=== PATIENT | male | born 1985 | race Caucasian/White ===

== ENCOUNTER 2019-03-19 00:48 | Emergency (ER) | payer SELFPAY ==
[2019-03-19 01:28] LABS: Absolute Lymphocytes (CBC) 2.7 K/uL (0.7-4.9); Hematocrit 44.3 % (39.6-49.0); Lymphocytes % 26.7 % (15.3-44.8); MPV 8.7 fL (7.6-11.3); RBC Red Blood Cell Count 4.89 M/uL (4.33-5.43)
[2019-03-19 01:35] LABS: Protime INR 1.02
[2019-03-19 01:45] LABS: ALT/SGPT 45 U/L (12-78); AST/SGOT 20 U/L (15-37); Albumin 3.9 g/dL (3.4-5.0); Alkaline Phosphatase 92 U/L (45-117); BUN Blood Urea Nitrogen 16 mg/dL (7-18); Bicarbonate 23 mmol/L (21-32); Bilirubin Direct < 0.1 mg/dL (0-0.2); Bilirubin Total 0.3 mg/dL (0.2-1.0); Glucose Level 99 mg/dL (74-106); Magnesium 2.2 mg/dL (1.8-2.4); NT PRO-BNP 101 pg/mL (<125); Potassium 3.6 mmol/L (3.5-5.1); Protein, Total 7.3 g/dL (6.4-8.2); Sodium Level 144 mmol/L (136-145); Troponin (Emerg Dept Use Only) < 0.02 ng/mL (0.0-0.045)
[2019-03-19] MEDS ORDERED: MORPHINE 4 MG/ML SYR ONE (02:41)
[2019-03-19] MEDS ORDERED: ONDANSETRON 4 MG/2 ML VIAL ONE (02:41)
[2019-03-19 02:47] LABS: Urine Blood NEGATIVE (NEG); Urine Glucose NEGATIVE (NEG); Urine Protein NEGATIVE (NEG); Urine Specific Gravity >1.030 (1.005-1.030); Urine pH 5.5 (5.0-7.0)
[2019-03-19 02:56] LABS: Barbiturates NEGATIVE (NEGATIVE); Benzodiazepines NEGATIVE (NEGATIVE); Cocaine NEGATIVE (NEGATIVE); METHAMPHETAM NEGATIVE (NEGATIVE); Methadone NEGATIVE (NEGATIVE); Opiates NEGATIVE (NEGATIVE); Phencyclidine NEGATIVE (NEGATIVE); THC Cannibis NEGATIVE (NEGATIVE)
[2019-03-19] MEDS ORDERED: NA CHLORIDE 0.9% 1,000 ML ONE (03:49)
[2019-03-19] MEDS ORDERED: MEPERIDINE HCL 50 MG/ML ONE (03:49)
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
--- NOTE | 2019-03-19 05:23 | EDPHYS ---
Physician Documentation [facility] Name: Camden Godinez Age: 33 yrs Sex: Male : 1985 Arrival Date: 03/19/2019 Time: 00:53 Bed 5 Private MD: ED Physician Cristofer Alan HPI: 03/19 01:06 This 33 yrs old Male presents to ER via EMS with complaints of Chest Pain. pkl 01:06 The patient or guardian reports chest pain that is located primarily in the substernal pkl area. The pain does not radiate. Associated signs and symptoms: Pertinent positives: palpitations. Associated signs and symptoms: Pertinent positives: headache. The chest pain is described as dull. Historical: - Allergies: 01:00 PENICILLINS; fc - Home Meds: 01:00 None [Active]; fc - PMHx: 01:00 Hypertension; fc - PSHx: 01:00 Bilateral knees; right hand; fc - Immunization history:: Last tetanus immunization: unknown. - Social history:: Smoking status: Patient uses tobacco products, smokes one pack cigarettes per day. Patient uses alcohol, occasionally. Patient/guardian denies using street drugs. - Ebola Screening: : Patient negative for fever greater than or equal to 101.5 degrees Fahrenheit, and additional compatible Ebola Virus Disease symptoms Patient denies exposure to infectious person Patient denies travel to an Ebola-affected area in the 21 days before illness onset. ROS: 01:06 Eyes: Negative for injury, pain, redness, and discharge, ENT: Negative for injury, pkl pain, and discharge, Neck: Negative for injury, pain, and swelling. 01:06 Cardiovascular: Positive for chest pain, palpitations. 01:06 Respiratory: Negative for cough, shortness of breath. 01:06 Abdomen/GI: Negative for abdominal pain, nausea, vomiting, and diarrhea. 01:06 Back: Negative for acute changes. 01:06 : Negative for urinary symptoms. 01:06 MS/extremity: Negative for acute changes. 01:06 Skin: Negative for rash. 01:06 Neuro: Positive for headache. Exam: 01:06 Head/Face: Normocephalic, atraumatic. Eyes: Pupils equal round and reactive to light, pkl extra-ocular motions intact. Lids and lashes normal. Conjunctiva and sclera are non-icteric and not injected. Cornea within normal limits. Periorbital areas with no swelling, redness, or edema. ENT: Nares patent. No nasal discharge, no septal abnormalities noted. Tympanic membranes are normal and external auditory canals are clear. Oropharynx with no redness, swelling, or masses, exudates, or evidence of obstruction, uvula midline. Mucous membranes moist. Neck: Trachea midline, no thyromegaly or masses palpated, and no cervical lymphadenopathy. Supple, full range of motion without nuchal rigidity, or vertebral point tenderness. No Meningismus. Chest/axilla: Normal chest wall appearance and motion. Nontender with no deformity. No lesions are appreciated. 01:06 Cardiovascular: Rate: normal, Rhythm: regular. 01:06 ECG was reviewed by the Attending Physician. 01:06 Respiratory: the patient does not display signs of respiratory distress, Respirations: normal, Breath sounds: are clear throughout. 01:06 Abdomen/GI: Bowel sounds: normal, Palpation: abdomen is soft and non-tender, in all quadrants. 01:06 Back: Exam negative for acute changes. 01:06 : Exam negative for acute changes. 01:06 Musculoskeletal/extremity: Exam is negative for acute changes. 01:06 Skin: Exam negative for rash. 01:06 Neuro: Orientation: is normal, Mentation: is normal, Cranial nerves: grossly normal, Motor: is normal. Vital Signs: 00:55 BP 140 / 90; Pulse 100; Resp 24; Temp 98.5(O); Pulse Ox 94% on R/A; Weight 113.4 kg fc (R); Height 5 ft. 10 in. (177.80 cm) (R); Pain 10/10; 01:32 BP 145 / 88; Pulse 103; Resp 24; Pulse Ox 93% on R/A; lp1 02:30 BP 130 / 93; Pulse 101; Resp 17; Pulse Ox 94% on R/A; lp1 03:15 BP 108 / 88; Pulse 95; Resp 17; Pulse Ox 94% on R/A; lp1 04:30 BP 122 / 67; Pulse 81; Resp 20; Pulse Ox 96% on 2 lpm NC; lp1 05:15 BP 136 / 80; Pulse 84; Resp 20; Pulse Ox 94% on R/A; lp1 05:42 BP 134 / 86; Pulse 84; Resp 20; Pulse Ox 94% on R/A; Pain 6/10; lp1 00:55 Body Mass Index 35.87 (113.40 kg, 177.80 cm) MDM: 01:02 Patient medically screened. pkl 05:20 Data reviewed: vital signs, nurses notes, lab test result(s), EKG, radiologic studies, pkl CT scan, plain films. 03/19 01:02 Order name: Basic Metabolic Panel; Complete Time: 02:16 03/19 01:02 Order name: CBC with Diff; Complete Time: 02:16 03/19 01:02 Order name: LFT's; Complete Time: 02:16 03/19 01:02 Order name: Magnesium; Complete Time: 02:16 03/19 01:02 Order name: NT PRO-BNP; Complete Time: 02:16 03/19 01:02 Order name: PT-INR 03/19 01:02 Order name: Troponin (emerg Dept Use Only); Complete Time: 02:16 03/19 01:02 Order name: XRAY Chest (1 view) 03/19 01:02 Order name: CT Head Brain wo Cont 03/19 01:06 Order name: ETOH Level; Complete Time: 02:16 pkl 03/19 01:06 Order name: UDS; Complete Time: 03:46 pkl 03/19 02:39 Order name: Urine Dipstick--Ancillary (enter results); Complete Time: 03:46 ag4 03/19 01:02 Order name: EKG; Complete Time: 01:06 03/19 01:02 Order name: Cardiac monitoring; Complete Time: 01:29 03/19 01:02 Order name: EKG - Nurse/Tech; Complete Time: 01:29 03/19 01:02 Order name: IV Saline Lock; Complete Time: 01:29 03/19 01:02 Order name: Labs collected and sent; Complete Time: 01:29 03/19 01:02 Order name: O2 Per Protocol; Complete Time: :29 03/19 01:02 Order name: O2 Sat Monitoring; Complete Time: 01:29 Administered Medications: 03:02 Drug: Zofran 4 mg Route: IVP; Site: right hand; bb 03:44 Follow up: Response: No adverse reaction lp1 03:02 Drug: morphine 4 mg {Note: RASS 0.} Route: IVP; Site: right hand; bb 03:44 Follow up: Response: Pain is unchanged, physician notified; RASS: Restless (+1) lp1 03:50 Drug: NS 0.9% 1000 ml Route: IV; Rate: 1000 ml; Site: right hand; lp1 05:22 Follow up: IV Status: Completed infusion; IV Intake: 1000ml lp1 03:50 Drug: Demerol 50 mg Route: IVP; Site: right hand; lp1 04:27 Follow up: Response: Pain is decreased; RASS: Alert and Calm (0) lp1 Disposition: 03/19/19 05:22 Discharged to Home. Impression: Chest pain. Acute headache. - Condition is Stable. - Prescriptions for Ultram 50 mg Oral Tablet - take 1 tablet by ORAL route every 8 hours As needed; 15 tablet. - Work release form, Medication Reconciliation Form, Thank You Letter, Antibiotic Education, Prescription Opioid Use, Family Work Release form. - Follow up: Private Physician; When: 2 - 3 days; Reason: Re-evaluation by your physician. Signatures: Dispatcher [employer] EDMS Cristofer Alan MD MD pkl Chretien, Felicia RN RN fc Codi Shin RN RN bb Pena, Laura, RN RN lp1 Nery Tamayo RN RN ea Corrections: (The following items were deleted from the chart) 05:45 05:22 03/19/2019 05:22 Discharged to Home. Impression: Chest pain. Acute headache. ea Condition is Stable. Forms are Medication Reconciliation Form, Thank You Letter, Antibiotic Education, Prescription Opioid Use. Follow up: Private Physician; When: 2 - 3 days; Reason: Re-evaluation by your physician. pkl
--- NOTE | 2019-03-19 08:26 | RAD REPORT ---
EXAM DESCRIPTION: Bernarda Single View03/19/2019 1:41 am CLINICAL HISTORY: Chest pain COMPARISON: none FINDINGS: The lungs appear clear of acute infiltrate. The heart is normal size IMPRESSION: No acute abnormalities displayed
--- NOTE | 2019-03-19 09:57 | RAD REPORT ---
EXAM DESCRIPTION: CT - Head Brain Wo Cont - 03/19/2019 6:57 am CLINICAL HISTORY: HEADACHE COMPARISON: None. TECHNIQUE: CT HEAD WITHOUT IV CONTRAST on 03/19/2019 1:02 AM CDT This exam was performed according to our departmental dose-optimization program, which includes autom ated exposure control, adjustment of the mA and/or kV according to patient size and/or use of iterati ve reconstruction technique. FINDINGS: There is no acute hemorrhage, mass effect or midline shift. Spencer-white differentiation is preserved. There is no hydrocephalus. There is no significant volume loss for age. The calvarium is intact. Orbits and globes are unremarkable. The paranasal sinuses are clear. Mastoid air cells are clear. IMPRESSION: No acute intracranial findings. Electronically signed by: Иван Ji MD 03/19/2019 1:41 AM CDT Due to temporary technical issues with the PACS/Fluency reporting system, reports are being signed by the in house radiologist as a courtesy to ensure prompt reporting. The interpreting radiologist is f ully responsible for the content of the report.
--- NOTE | 2019-03-19 17:36 | EKG ---
Test Date: 2019-03-19 Test Time: 00:53:41 [place] Operator: JOVANNY MEASUREMENT RESULTS: Intervals: Rate: 104 AK: 138 QRSD: 84 QT: 346 QTc: 454 [place]: P: -12 AK: 138 QRS: 49 T: 9 INTERPRETIVE STATEMENTS: Sinus tachycardia Otherwise normal ECG No previous ECG available for comparison Electronically Signed On 03-19-19 17:34:06 CDT by Estuardo Bailey
== END 2019-03-19 05:45 | disposition home or self-care (01) ==
LOC: ER 00:48
DX: R51 Headache (principal); I10 Essential (primary) hypertension; F17.210 Nicotine dependence, cigarettes, uncomplicated; Z88.0 Allergy status to penicillin
CPT/HCPCS: 36415; 70450; 71045; 80048; 80076; 80307; 80320; 81003; 83735; 83880; 84484; 85025; 85610; 93005; 96361; 96374; 96375; 99285; J2175; J2405; J7030

== ENCOUNTER 2019-09-26 08:16 | Emergency (ER) | payer SELFPAY ==
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
--- OUTSIDE RECORDS SUMMARY | 2019-09-26 08:18 | XMS REPORT ---
:1985 [facility] Address [address] [place] [address] Dr. Brooks [address] [place] [id number] Care Team Providers Name Role Phone Unavailable Unavailable Unavailable Problems This patient has no known problems. Allergies, Adverse Reactions, Alerts This patient has no known allergies or adverse reactions. Medications This patient has no known medications.
--- OUTSIDE RECORDS SUMMARY | 2019-09-26 08:18 | XMS REPORT | Summary of Care ---
:1985 Author Organization [facility] - [facility] Address [address] [place] [address] Care Team Providers Name Role Phone Camden Alvarez MD Primary Care Provider Reason for Visit Reason Comments Anxiety Depression Hypertension Encounter Details Date Type Department Care Team Description 03/20/2019 Office Visit [facility] Family Camden Alvarez Mood disorder ( Primary Dx); Medicine - Jordana Howell MD Anxiety and depression [facility] [address] [place] [address] [phone] Allergies No Known Allergiesdocumented as of this [...] with medications: stopped medication 3 weeks ago. 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
--- OUTSIDE RECORDS SUMMARY | 2019-09-26 08:19 | XMS REPORT | Summary of Care ---
:1985 Author Organization [facility] - [facility] Address [address] [place] [address] Care Team Providers Name Role Phone Camden Alvarez MD Primary Care Provider Reason for Visit Reason Comments Anxiety Depression Hypertension Encounter Details Date Type Department Care Team Description 03/20/2019 Office Visit [facility] Family Camden Alvarez Mood disorder ( Primary Dx); Medicine - Jordana Howell MD Anxiety and depression [facility] [address] [place] [address] [phone] Allergies No Known Allergiesdocumented as of this [...] with medications: stopped medication 3 weeks ago. 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
--- OUTSIDE RECORDS SUMMARY | 2019-09-26 08:19 | XMS REPORT | Summary of Care ---
:1985 Author Organization [facility] - [facility] Address [address] [place] [address] Care Team Providers Name Role Phone Camden Alvarez MD Primary Care Provider Reason for Visit Reason Comments Anxiety Depression Hypertension Encounter Details Date Type Department Care Team Description 03/20/2019 Office Visit [facility] Family Camden Alvarez Mood disorder ( Primary Dx); Medicine - Jordana Howell MD Anxiety and depression [facility] [address] [place] [address] [phone] Allergies No Known Allergiesdocumented as of this [...] with medications: stopped medication 3 weeks ago. 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
--- OUTSIDE RECORDS SUMMARY | 2019-09-26 08:20 | XMS REPORT | Summary of Care ---
:1985 Author Organization [facility] Address [address] [place] [address] Care Team Providers Name Role Phone Camden Alvarez MD Primary Care Provider Reason for Visit Reason Comments Anxiety Depression Hypertension Encounter Details Date Type Department Care Team Description 03/20/2019 Office Visit [facility] Family Camden Alvarez Mood disorder ( Primary Dx); Medicine - Jordana Howell MD Anxiety and depression; [address] [place] [address] [address] [place] [address] [place] [address] [phone] Allergies No Known Allergiesdocumented as of this encounter (statuses as of 03/20/2019) Medications Medication Sig Dispensed Refills Start Date End Date Status SERTraline 50 mg Take 1 tablet 30 tablet 12 03/20/2019 Active tabletIndications: by mouth Mood disorder, daily. Anxiety and depression ALPRAZolam 0.5 mg Take 1 tablet 60 tablet 0 03/20/2019 Active tabletIndications: by mouth 2 Mood disorder, (two) times Anxiety and daily as depression needed (anxiety). amLODIPine 5 mg Take 1 tablet 30 tablet 12 03/20/2019 Active tabletIndications: by mouth Essential daily. hypertension amLODIPine 5 mg Take 1 tablet 30 tablet 3 12/27/2018 03/20/2019 Discontinued tabletIndications: by mouth Essential daily. hypertension escitalopram Take 1 tablet 30 tablet 12 [...] with medications: stopped medication 3 weeks ago. 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
--- OUTSIDE RECORDS SUMMARY | 2019-09-26 08:20 | XMS REPORT | Summary of Care ---
:1985 Author Organization [facility] - Health Address [address] [place] [address] Care Team Providers Name Role Phone Camden Alvarez MD Primary Care Provider Encounter Details Date Type Department Care Team Description 03/20/2019 Orders Only [facility] Doctor Unassigned, No [address] [facility] [place] [address] [address] [place] [address] Allergies No Known Allergiesdocumented as of this encounter (statuses as of 03/26/2019) Medications Medication Sig Dispensed Refills Start Date End Date Status SERTraline 50 mg Take 1 tablet by 30 tablet 12 03/20/2019 Active tabletIndications: Mood mouth daily. disorder, Anxiety and depression ALPRAZolam 0.5 mg Take 1 tablet by 60 tablet 0 03/20/2019 Active tabletIndications: Mood mouth 2 (two) disorder, Anxiety and times daily as depression needed (anxiety). amLODIPine 5 mg Take 1 tablet by 30 tablet 12 03/20/2019 Active tabletIndications: mouth daily. Essential hypertension documented as of this encounter (statuses as of 03/26/2019) Active Problems Problem Noted Date Dizziness 11/29/2017 Acute nonintractable headache, unspecified headache type 11/29/2017 History of chest pain 11/29/2017 Left hand paresthesia 11/29/2017 Tobacco use disorder 11/29/2017 documented as of this encounter (statuses as of 03/26/2019) Immunizations Name Administration Dates Next Due Td [...] of this encounter Last Filed Vital Signs Not on filedocumented in this encounter Plan of Treatment Date Type Specialty Care Team Description 04/19/2019 Office Visit Family Medicine Camden Alvarez MD [address] [place] [address] [place] [phone] Health Maintenance Due Date Last Done Comments PNEUMOCOCCAL 0-64 YEARS COMBINED SERIES (1 of 1 - 1992 PPSV23) VARICELLA VACCINES (1 of 2 - 13+ 2-dose series) 1999 DTaP,Tdap,and Td Vaccines (1 - Tdap) 10/27/2007 10/26/2007 INFLUENZA VACCINE (#1) 2019 documented as of this encounter Procedures Procedure Name Priority Date/Time Associated Diagnosis Comments [facility] STATEMENT OF PATIENT Routine 03/20/2019 12:01 AM FINANCIAL RESPONSIBILITY CDT documented in this encounter Results Not on filedocumented in this encounter
--- OUTSIDE RECORDS SUMMARY | 2019-09-26 08:20 | XMS REPORT | Summary of Care ---
:1985 Author Organization [facility] Address [address] [place] [address] Care Team Providers Name Role Phone Camden Alvarez MD Primary Care Provider Reason for Visit Reason Comments Erroneous encounter-disregard Encounter Details Date Type Department Care Team Description 03/19/2019 Refill [facility] Family Camden Alvarez Erroneous Medicine - Jordana Howell MD encounter-disregard [address] [facility] [place] [address] [place] [phone] Allergies No Known Allergiesdocumented as of this encounter (statuses as of 04/02/2019) Medications No known medicationsdocumented as of this encounter (statuses as of 04/02/2019) Active Problems Problem Noted Date Dizziness 11/29/2017 Acute nonintractable headache, unspecified headache type 11/29/2017 History of chest pain 11/29/2017 Left hand paresthesia 11/29/2017 Tobacco use disorder 11/29/2017 documented as of this encounter (statuses as of 04/02/2019) Immunizations Name Administration Dates Next Due Td [...] Office Visit Family Medicine Camden Alvarez MD [address] [place] [address] DR [place], SUDHIR [phone] Health Maintenance Due Date Last Done Comments PNEUMOCOCCAL 0-64 YEARS COMBINED SERIES (1 of 1 - 1992 PPSV23) VARICELLA VACCINES (1 of 2 - 13+ 2-dose series) 1999 DTaP,Tdap,and Td Vaccines (1 - Tdap) 10/27/2007 10/26/2007 INFLUENZA VACCINE (#1) 2019 documented as of this encounter Results Not on filedocumented in this encounter Visit Diagnoses Diagnosis Essential hypertension Unspecified essential hypertension documented in this encounter
[2019-09-26 09:21] LABS: Absolute Lymphocytes (CBC) 1.8 K/uL (0.7-4.9); Basophils % 0.6 % (0-1.3); Hematocrit 44.6 % (39.6-49.0); Lymphocytes % 14.6 % (15.3-44.8); MPV 8.8 fL (7.6-11.3); RBC Red Blood Cell Count 5.04 M/uL (4.33-5.43)
--- NOTE | 2019-09-26 09:33 | RAD REPORT ---
EXAM DESCRIPTION: [facility] Single View09/26/2019 9:08 am CLINICAL HISTORY: Chest pain COMPARISON: . 2019 FINDINGS: The lungs appear clear of acute infiltrate. The heart is normal size IMPRESSION: No acute abnormalities displayed
[2019-09-26 09:37] LABS: Potassium 4.5 mmol/L (3.5-5.1)
--- NOTE | 2019-09-26 09:52 | EDPHYS ---
Physician Documentation [facility] Name: Camden Godinez Age: 34 yrs Sex: Male : 1985 Arrival Date: 09/26/2019 Time: 08:19 Bed 13 Private MD: ED Physician Ayaz Matthews HPI: 09/25 08:59 This 34 yrs old Male presents to ER via Ambulatory with complaints of Flu kdr Symptoms. 08:59 The patient became acutely ill yesterday with cough, congestion, subjective fever and kdr body aches. Onset: The symptoms/episode began/occurred suddenly, yesterday. Severity of symptoms: At their worst the symptoms were moderate severe incapacitating today, in the emergency department the symptoms have improved mildly. The patient has not experienced similar symptoms in the past. The patient has not recently seen a physician. The patient works at the [employer] with international exposure but he has no known or suspected direct contacts at this time. Historical: - Allergies: 08:55 No Known Allergies; dm5 - Home Meds: 08:55 None [Active]; dm5 - PMHx: 08:55 Hypertension; dm5 - PSHx: 08:55 None; dm5 - Immunization history:: Flu vaccine status is unknown. - Social history:: Smoking status: unknown. ROS: 11:22 Constitutional: Negative for fever, chills, and weight loss, Eyes: Negative for injury, kdr pain, redness, and discharge, ENT: Negative for injury, pain, and discharge, Neck: Negative for injury, pain, and swelling, Cardiovascular: Negative for chest pain, palpitations, and edema, Respiratory: Negative for shortness of breath, cough, wheezing, and pleuritic chest pain, Back: Negative for injury and pain, : Negative for injury, bleeding, discharge, and swelling, MS/Extremity: Negative for injury and deformity, Skin: Negative for injury, rash, and discoloration, Neuro: Negative for headache, weakness, numbness, tingling, and seizure activity. Psych: Negative for depression, anxiety, suicide ideation, homicidal ideation, and hallucinations, Allergy/Immunology: Negative for hives, rash, and allergies, Endocrine: Negative for neck swelling, polydipsia, polyuria, polyphagia, and marked weight changes, Hematologic/Lymphatic: Negative for swollen nodes, abnormal bleeding, and unusual bruising. 11:22 Abdomen/GI: Positive for nausea and vomiting, Negative for diarrhea, constipation, abdominal cramps, abdominal distension, anorexia, black/tarry stool, rectal pain, rectal bleeding. Exam: 11:22 Constitutional: This is a well developed, well nourished patient who is awake, alert, kdr and in mild distress. Head/Face: Normocephalic, atraumatic. Eyes: Pupils equal round and reactive to light, extra-ocular motions intact. Lids and lashes normal. Conjunctiva and sclera are non-icteric and not injected. Cornea within normal limits. Periorbital areas with no swelling, redness, or edema. ENT: Nares patent. No nasal discharge, no septal abnormalities noted. Tympanic membranes are normal and external auditory canals are clear. Oropharynx with no redness, swelling, or masses, exudates, or evidence of obstruction, uvula midline. Mucous membranes moist. Neck: Trachea midline, no thyromegaly or masses palpated, and no cervical lymphadenopathy. Supple, full range of motion without nuchal rigidity, or vertebral point tenderness. No Meningismus. Chest/axilla: Normal chest wall appearance and motion. Nontender with no deformity. No lesions are appreciated. Cardiovascular: Regular rate and rhythm with a normal S1 and S2. No gallops, murmurs, or rubs. Normal PMI, no JVD. No pulse deficits. Abdomen/GI: Soft, non-tender, with normal bowel sounds. No distension or tympany. No guarding or rebound. No evidence of tenderness throughout. Back: No spinal tenderness. No costovertebral tenderness. Full range of motion. Skin: Warm, dry with normal turgor. Normal color with no rashes, no lesions, and no evidence of cellulitis. MS/ Extremity: Pulses equal, no cyanosis. Neurovascular intact. Full, normal range of motion. Neuro: Awake and alert, GCS 15, oriented to person, place, time, and situation. Cranial nerves II-XII grossly intact. Motor strength 5/5 in all extremities. Sensory grossly intact. Cerebellar exam normal. Normal gait. Psych: Awake, alert, with orientation to person, place and time. Behavior, mood, and affect are within normal limits. 11:22 Respiratory: mild respiratory distress is noted, Respirations: normal, Breath sounds: wheezing: is not appreciated. Vital Signs: 08:50 BP 117 / 89; Pulse 82; Resp 20; Temp 97.6; Pulse Ox 96% on R/A; Weight 115.67 kg (R); dm5 Height 6 ft. (182.88 cm) (R); Pain 7/10; 10:18 BP 121 / 78; Pulse 81; Resp 18; Temp 98.7; Pulse Ox 100% ; mg2 08:50 Body Mass Index 34.58 (115.67 kg, 182.88 cm) dm5 MDM: 09:51 Patient medically screened. kdr 11:22 Data reviewed: vital signs, nurses notes, lab test result(s), radiologic studies. kdr Counseling: I had a detailed discussion with the patient and/or guardian regarding: the historical points, exam findings, and any diagnostic results supporting the discharge/admit diagnosis, lab results, radiology results, the need for outpatient follow up. 09/25 08:56 Order name: Flu; Complete Time: 09:50 kdr 09/25 08:56 Order name: CBC with Diff; Complete Time: 09:35 kdr 09/25 08:56 Order name: CXR XRAY; Complete Time: 09:50 kdr 09/25 08:56 Order name: Chem 7; Complete Time: 09:50 kdr Administered Medications: No medications were administered Disposition: 09/26/19 09:51 Discharged to Home. Impression: Viral infection, unspecified, Acute upper respiratory infection, unspecified. - Condition is Stable. - Discharge Instructions: Upper Respiratory Infection, Adult, Viral Respiratory Infection, [id number]-[id number]. - Prescriptions for Tamiflu 75 mg Oral Capsule - take 1 tablet by ORAL route every 12 hours for 5 days; 10 tablet. Promethazine VC- Codeine 6.25-5-10 mg/5 mL Oral syrup - take 5 milliliter by ORAL route every 4-6 hours as needed, not to exceed 30 mL in 24 hours; 200 milliliter. Zyrtec 10 mg Oral Tablet - take 1 tablet by ORAL route once daily As needed; 20 tablet. Tessalon Perles 100 mg Oral Capsule - take 1 capsule by ORAL route every 8 hours As needed; 15 capsule. - Medication Reconciliation Form, Thank You Letter, Antibiotic Education, Work release form form. - Follow up: Private Physician; When: 2 - 3 days; Reason: If symptoms return, Further diagnostic work-up, Recheck today's complaints, Continuance of care, Re-evaluation by your physician. - Problem is new. - Symptoms have improved. Signatures: Dispatcher [employer] Amairani Osei, RN RN dm5 Ayaz Matthews MD MD kdr Андрей Lujan, JOANN RN mg2 Corrections: (The following items were deleted from the chart) 10:19 09:51 09/26/2019 09:51 Discharged to Home. Impression: Viral infection, unspecified; mg2 Acute upper respiratory infection, unspecified. Condition is Stable. Forms are Medication Reconciliation Form, Thank You Letter, Antibiotic Education, Prescription Opioid Use. Follow up: Private Physician; When: 2 - 3 days; Reason: If symptoms return, Further diagnostic work-up, Recheck today's complaints, Continuance of care, Re-evaluation by your physician. Problem is new. Symptoms have improved. kdr
--- NOTE | 2019-09-26 09:52 | ER ---
Nurse's Notes [facility] Name: Camden Godinez Age: 34 yrs Sex: Male : 1985 Arrival Date: 09/26/2019 Time: 08:19 Bed 13 Private MD: Diagnosis: Viral infection, unspecified;Acute upper respiratory infection, unspecified Presentation: 09/25 08:50 Chief complaint: Patient states: woke up yesterday and threw up then felt worse dm5 throughout the day. pt states he has had fever but was unable to check temp at home so unsure how high temp was. took tylenol at 0455. pt also reports body aches. Coronavirus screen: The patient has NOT traveled to a country currently being monitored by the [facility] within the last 14 days. Proceed with normal triage procedures. The patient has NOT had contact with any known and/or suspected case of coronavirus. Proceed with normal triage procedures. pt reports he works "around the [employer] in [place]". Ebola Screen: Patient negative for fever greater than or equal to 101.5 degrees Fahrenheit, and additional compatible Ebola Virus Disease symptoms Patient denies exposure to infectious person. Patient denies travel to an Ebola-affected area in the 21 days before illness onset. No symptoms or risks identified at this time. Initial Sepsis Screen: Does the patient meet any 2 criteria? No. Patient's initial sepsis screen is negative. Does the patient have a suspected source of infection? No. Patient's initial sepsis screen is negative. Risk Assessment: Do you want to hurt yourself or someone else? Patient reports no desire to harm self or others. 08:50 Method Of Arrival: Ambulatory dm5 08:50 Acuity: [place] 3 dm5 Historical: - Allergies: 08:55 No Known Allergies; dm5 - Home Meds: 08:55 None [Active]; dm5 - PMHx: 08:55 Hypertension; dm5 - PSHx: 08:55 None; dm5 - Immunization history:: Flu vaccine status is unknown. - Social history:: Smoking status: unknown. Screenin:15 Abuse screen: Denies threats or abuse. Denies injuries from another. Nutritional mg2 screening: No deficits noted. Tuberculosis screening: No symptoms or risk factors identified. Fall Risk IV access (20 points). Assessment: 09:16 General: Appears in no apparent distress. comfortable, Behavior is calm, cooperative. mg2 Neuro: Level of Consciousness is awake, alert, obeys commands, Oriented to person, place, time, situation. Cardiovascular: Capillary refill < 3 seconds Patient's skin is warm and dry. Respiratory: Airway is patent Respiratory effort is even, unlabored, Respiratory pattern is regular, symmetrical. Respiratory: Reports cough that is. GI: No signs and/or symptoms were reported involving the gastrointestinal system. GI: Reports vomiting. : No signs and/or symptoms were reported regarding the genitourinary system. EENT: No signs and/or symptoms were reported regarding the EENT system. Derm: Skin is intact, is healthy with good turgor, Skin is pink, warm \\T\\ dry. normal. Musculoskeletal: Circulation, motion, and sensation intact. Capillary refill < 3 seconds. Vital Signs: 08:50 BP 117 / 89; Pulse 82; Resp 20; Temp 97.6; Pulse Ox 96% on R/A; Weight 115.67 kg (R); dm5 Height 6 ft. (182.88 cm) (R); Pain 7/10; 10:18 BP 121 / 78; Pulse 81; Resp 18; Temp 98.7; Pulse Ox 100% ; mg2 08:50 Body Mass Index 34.58 (115.67 kg, 182.88 cm) dm5 ED Course: 08:19 Patient arrived in ED. ag5 08:27 Ayaz Matthews MD is Attending Physician. kdr 08:43 Tavo Jimenez, JOANN is Primary Nurse. jl7 08:53 Triage completed. dm5 09:09 CXR XRAY In Process Unspecified. EDMS 09:10 Inserted saline lock: 20 gauge in right forearm, using aseptic technique. Blood mg2 collected. 09:13 Arm band placed on. mg2 09:13 No provider procedures requiring assistance completed. mg2 10:18 IV discontinued, intact, bleeding controlled, No redness/swelling at site. Pressure mg2 dressing applied. 10:19 Patient has correct armband on for positive identification. mg2 Administered Medications: No medications were administered Outcome: 09:51 Discharge ordered by . kdr 10:19 Discharged to home ambulatory, with family. mg2 10:19 Condition: stable 10:19 Discharge instructions given to patient, family, Instructed on discharge instructions, follow up and referral plans. medication usage, Demonstrated understanding of instructions, follow-up care, medications, Prescriptions given X 4. 10:19 Patient left the ED. mg2 Signatures: Dispatcher [employer] EDAmairani Diaz, RN RN dm5 Ayaz Matthews MD MD kdr Tavo Jimenez RN RN jl7 Андрей Lujan RN RN mg2 Kylee, Robyn 5
[2019-09-26 10:38] VITALS: BP 121/78; TEMP 98.7; O2SAT 100
== END 2019-09-26 10:19 | disposition home or self-care (01) ==
LOC: ER 08:16
DX: B34.9 Viral infection, unspecified (principal); J06.9 Acute upper respiratory infection, unspecified; I10 Essential (primary) hypertension
CPT/HCPCS: 36415; 71045; 80048; 85025; 87804; 99284

== ENCOUNTER 2020-11-22 18:41 | Emergency (ER) | payer OTHER, SELFPAY ==
--- OUTSIDE RECORDS SUMMARY | 2020-11-22 18:44 | XMS REPORT | Continuity of Care Document ---
:1985 Author Organization [facility] t Address [address] [place] [address] [address] Cl[address] [place] [address] Care Team Providers Name Role Phone Dante Alvarez MD Attending Clinician Doctor Unassigned, Name Attending Clinician Unavailable Problems This patient has no known problems. Allergies, Adverse Reactions, Alerts This patient has no known allergies or adverse reactions. Medications This patient has no known medications. Procedures This patient has no known procedures. Encounters Start End Encounter Admission Attending Care Care Encounter Source Date/Time Date/Time Type Type Clinicians Facility Department ID 2019-12-24 2019-12-24 Telephone [facility] [id number] 00:00:00 00:00:00 [facility] [id number] [facility] [id number] Professio [phone] [place] [address] [address] 2019-11-26 2019-11-26 Telephone [facility] [id number] 00:00:00 00:00:00 [facility] [id number] [facility] [id number] Michelle [phone] [place] [address] [address] 2019-11-19 2019-11-19 [facility] [id number] 07:41:48 07:56:48 ne Visit Dino Silveira [id number] [facility] [id number] Professio [phone] [place] [address] Building 2019-03-20 2019-03-20 Office [facility] [id number] 13:25:29 14:22:12 Visit [facility] [id number] [facility] [place] [id number] Professio [phone] [place] [address] [address] 2019-03-20 2019-03-20 Orders Doctor LEE ANN [id number] 00:00:00 00:00:00 Only Unassigned, [place] [id number] [facility] [id number] 2019-03-19 2019-03-19 Refill [facility] [id number] 00:00:00 00:00:00 [facility] [id number] Edward [place] [id number] Professio [phone] [place] [address] [address] Results This patient has no known results.
[2020-11-22 19:32] LABS: Absolute Lymphocytes (CBC) 2.7 K/uL (0.7-4.9); Basophils % 1.1 % (0-1.3); Hematocrit 43.2 % (39.6-49.0); Lymphocytes % 27.5 % (15.3-44.8); MPV 8.2 fL (7.6-11.3); RBC Red Blood Cell Count 4.89 M/uL (4.33-5.43)
[2020-11-22] MEDS ORDERED: MORPHINE 4 MG/ML SYR ONE (19:32)
[2020-11-22] MEDS ORDERED: NA CHLORIDE 0.9% 1,000 ML ONE (19:32)
[2020-11-22] MEDS ORDERED: ONDANSETRON 4 MG/2 ML VIAL ONE (19:32)
[2020-11-22 19:41] LABS: Protime INR 0.98
[2020-11-22 19:45] LABS: Potassium 3.8 mmol/L (3.5-5.1)
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
--- NOTE | 2020-11-22 20:30 | RAD REPORT ---
EXAM DESCRIPTION: Bernarda Single View11/22/2020 8:14 pm CLINICAL HISTORY: Chest pain COMPARISON: 2019 FINDINGS: The lungs appear clear of acute infiltrate. The heart is normal size IMPRESSION: No acute abnormalities displayed
--- NOTE | 2020-11-22 20:33 | RAD REPORT ---
EXAM DESCRIPTION: RAD - Hand Right 3 View - 11/22/2020 8:13 pm CLINICAL HISTORY: Right hand pain status post injury FINDINGS: Sideplate and screws affix an old fifth metacarpal fracture. No acute fracture or dislocation seen
--- NOTE | 2020-11-22 20:48 | RAD REPORT ---
EXAM DESCRIPTION: RAD - Knee Right 3 View - 11/22/2020 8:13 pm CLINICAL HISTORY: Right knee pain status post injury FINDINGS: Soft tissue swelling. Curvilinear bony/calcific density anterior to the patella probably is chronic. No acute fracture or dislocation seen . If patient continues have symptoms to suggest an acute fracture CT would be recommended
[2020-11-22] MEDS ORDERED: MEPERIDINE HCL 50 MG/ML ONE (22:12)
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
[2020-11-22 23:35] VITALS: TEMP 98.2
[2020-11-22 23:36] VITALS: O2SAT 98
[2020-11-22 23:37] VITALS: BP 130/84
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
== END 2020-11-22 23:25 | disposition home or self-care (01) ==
LOC: ER 18:41
DX: S06.0X9A Concussion with loss of consciousness of unspecified duration, initial encounter (principal); M25.562 Pain in left knee; M25.561 Pain in right knee; M79.641 Pain in right hand; V86.59XA Driver of other special all-terrain or other off-road motor vehicle injured in nontraffic accident, initial encounter; I10 Essential (primary) hypertension
CPT/HCPCS: 96361; 85025; 80048; 36415; 86900; 86850; 85610; 82565; 86901; 85730; 70450; 72125; 71260; 70486; 76377; 73700; 74177; 71045; 73130; 73562; 96375; 96374; 99284; Q9967; J2175; J7030; J2405; G0390

== ENCOUNTER 2022-03-01 12:59 | Emergency (ER) | payer OTHER, SELFPAY ==
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
[2022-03-01 13:39] LABS: Urine Blood Trace-intact (Negative); Urine Glucose Negative (Negative); Urine Protein Negative (Negative); Urine Specific Gravity 1.015 (1.005-1.030)
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
[2022-03-01 13:59] LABS: Hematocrit 42.7 % (39.6-49.0); Lymphocytes % 10.3 % (15.3-44.8); MCV 88.3 fL (80-100); MPV 7.4 fL (7.6-11.3); RBC Red Blood Cell Count 4.83 M/uL (4.33-5.43)
[2022-03-01] MEDS ORDERED: METOCLOPRAMIDE 10 MG/2mL INJ ONE (14:04)
[2022-03-01] MEDS ORDERED: DIPHENHYDRAMINE 50 MG/ML VIAL ONE (14:04)
[2022-03-01] MEDS ORDERED: NA CHLORIDE 0.9% 1,000 ML ONE ×2 (14:04→15:00)
[2022-03-01 14:19] LABS: Urine Bacteria <20 /HPF (<20); Urine RBC None Seen /HPF (None Seen)
[2022-03-01 14:22] LABS: Urine Mucus 1+ /HPF (None Seen)
[2022-03-01 14:28] LABS: Albumin 3.6 g/dL (3.4-5.0); Bilirubin Direct 0.2 mg/dL (0-0.2); Bilirubin Total 1.4 mg/dL (0.2-1.0); Potassium 3.7 mmol/L (3.5-5.1); Protein, Total 7.3 g/dL (6.4-8.2); Troponin High Sensitivity 5.1 pg/mL (<58.9)
[2022-03-01] MEDS ORDERED: KETOROLAC 30 MG/ML INJ ONE (15:00)
--- NOTE | 2022-03-01 15:14 | RAD REPORT ---
EXAM DESCRIPTION: CT - Head Brain Wo Cont - 03/01/2022 2:59 pm CLINICAL HISTORY: Headache COMPARISON: 2019 TECHNIQUE: Computed axial tomography of the head was obtained. IV contrast was not requested. All CT scans are performed using dose optimization technique as appropriate and may include automated exposure control or mA/KV adjustment according to patient size. FINDINGS: An intracranial bleed is not seen . The ventricles are normal in caliber. No significant hypodense areas within the brain visualized No extra-axial fluid collection is noted. Fluid within the sinuses/ mastoids is not seen. IMPRESSION: No acute intracranial abnormality is seen. If patient's symptoms persist MRI of the bra in would be recommended.
--- NOTE | 2022-03-01 15:18 | RAD REPORT ---
EXAM DESCRIPTION: CT - Stone Protocol - 03/01/2022 3:00 pm CLINICAL HISTORY: Abdominal pain. COMPARISON: None. TECHNIQUE: Computed axial tomography of the abdomen pelvis was obtained without oral or IV contrast. Lack of IV and oral contrast limits evaluation of solid organs, appendix, bowel, and vessels. Alegre l reformatted images were obtained and reviewed. All CT scans are performed using dose optimization technique as appropriate and may include automated exposure control or mA/KV adjustment according to patient size. FINDINGS: A renal calculus is not seen. An ureteral calculus is not noted. A bladder calculus is not present. The liver, spleen, pancreas and adrenals appear grossly normal There is no evidence of diverticulitis. The appendix appears normal IMPRESSION: Negative for a genitourinary calculus
--- NOTE | 2022-03-01 17:49 | ER ---
Nurse's Notes [facility] Name: Camden Godinez Age: 36 yrs Sex: Male : 1985 Arrival Date: 03/01/2022 Time: 13:03 Bed 16 Private MD: Diagnosis: Elevated white blood cell count, unspecified;Low back pain;Headache;Heat exhaustion, unspecified, initial encounter Presentation: 03/01 13:09 Chief complaint: Headache, SOB, chest pressure, muscle cramping, and pain with hb urination after working out in heat yesterday. Urine was dark brown yesterday, clear today. Coronavirus screen: At this time, the client does not indicate any symptoms associated with coronavirus-19. Ebola Screen: No symptoms or risks identified at this time. Initial Sepsis Screen: Does the patient meet any 2 criteria? No. Patient's initial sepsis screen is negative. Does the patient have a suspected source of infection? No. Patient's initial sepsis screen is negative. Risk Assessment: Do you want to hurt yourself or someone else? Patient reports no desire to harm self or others. Onset of symptoms was February 28, 2022. 13:09 Method Of Arrival: Ambulatory hb 13:09 Acuity: [place] 3 hb Triage Assessment: 14:00 General: Appears uncomfortable, Behavior is anxious. : Urine is dark dory, pain with jg9 urination. Musculoskeletal: Reports body cramping. 14:00 Respiratory: the patient has moderate shortness of breath. jg9 14:00 Respiratory: Reports shortness of breath on exertion. jg9 14:00 Respiratory: Onset: The symptoms/episode began/occurred at an unknown time. jg9 Historical: - Allergies: 13:12 No Known Allergies; hb - PMHx: 13:12 Hypertension; hb - Immunization history:: Adult Immunizations up to date. - Social history:: Smoking status: Patient denies any tobacco usage or history of. Screenin:17 Abuse screen: Denies threats or abuse. Denies injuries from another. Nutritional jg9 screening: No deficits noted. Tuberculosis screening: No symptoms or risk factors identified. Fall Risk None identified. Assessment: 16:16 Reassessment: Patient and/or family updated on plan of care and expected duration. Pain jg9 level reassessed. Patient is alert, oriented x 3, equal unlabored respirations, skin warm/dry/pink. Patient states feeling better. Patient states symptoms have improved. Pain: Complains of pain in head of penis, shaft of penis and meatus. Cardiovascular: Rhythm is sinus tachycardia. Respiratory: Airway is patent Respiratory effort is even, unlabored, Breath sounds are clear bilaterally. Vital Signs: 13:09 BP 156 / 90; Pulse 103; Resp 20; Temp 98.3; Pulse Ox 99% ; Weight 115.67 kg; Height 6 hb ft. 1 in. (185.42 cm); Pain 7/10; 15:55 BP 135 / 83; Pulse 91; Resp 25; Pulse Ox 95% on R/A; Pain 7/10; jg9 16:00 BP 145 / 98; Pulse 90; Resp 24 S; Pulse Ox 96% on R/A; jg9 16:30 BP 134 / 90; Pulse 88; Resp 22 S; Pulse Ox 96% on R/A; jg9 17:45 BP 135 / 81; Pulse 89; Resp 18 S; Pulse Ox 97% on R/A; Pain 3/10; jg9 13:09 Body Mass Index 33.64 (115.67 kg, 185.42 cm) hb ED Course: 13:03 Patient arrived in ED. rg4 13:12 Triage completed. hb 13:12 Arm band placed on. hb 13:15 Kaden Clark PA is PHCP. cp 13:15 Pavel Quijano DO is Attending Physician. cp 13:24 Rhonda Arellano, RN is Primary Nurse. jg9 13:41 XRAY Chest (1 view) In Process Unspecified. EDMS 13:54 Inserted saline lock: 20 gauge in left antecubital area, using aseptic technique. Blood iw collected. 15:01 CT Stone Protocol In Process Unspecified. EDMS 15:02 CT Head Brain wo Cont In Process Unspecified. EDMS 16:17 Patient has correct armband on for positive identification. Bed in low position. Call jg9 light in reach. Side rails up X 1. 18:04 No provider procedures requiring assistance completed. jg9 18:05 IV discontinued. jg9 Administered Medications: 13:58 Drug: Benadryl (diphenhydrAMINE) 25 mg Route: IVP; Site: left antecubital; jg9 14:42 Follow up: Response: No adverse reaction jg9 14:00 Drug: NS 0.9% 1000 ml Route: IV; Rate: 1 bolus; Site: left antecubital; jg9 16:00 Follow up: IV Status: Completed infusion; IV Intake: 1000ml jg9 14:00 Drug: Reglan (metoCLOPramide) 10 mg Route: IVP; Site: left antecubital; jg9 16:00 Follow up: Response: No adverse reaction; Pain is decreased jg9 15:14 Drug: Ketorolac 15 mg Route: IVP; Site: left antecubital; jg9 16:15 Follow up: Response: No adverse reaction; Pain is decreased jg9 16:17 Drug: NS 0.9% 1000 ml Route: IV; Rate: 1 bolus; Site: left antecubital; jg9 18:06 Follow up: IV Status: Completed infusion; IV Intake: 1000ml jg9 Medication: 18:05 VIS not applicable for this client. jg9 Intake: 16:00 IV: 1000ml; Total: 1000ml. jg9 18:06 IV: 1000ml; Total: 2000ml. jg9 Outcome: 17:49 Discharge ordered by MD. cp 18:05 Discharged to home ambulatory. jg9 18:05 Condition: improved 18:05 Discharge instructions given to patient, Instructed on discharge instructions, follow up and referral plans. Demonstrated understanding of instructions, follow-up care. 18:15 Patient left the ED. jg9 Signatures: Dispatcher [employer] EDRI Gisselle Trevizo RN RN iw Page, Corey, PA PA cp Baxter, Heather, RN RN hb Garcia, Rubi rg4 Rhonda Arellano RN RN jg9 Corrections: (The following items were deleted from the chart) 16:19 16:00 General: Appears uncomfortable, Behavior is crying, jg9 jg9 16:19 16:00 Respiratory: Reports shortness of breath Onset: The symptoms/episode jg9 began/occurred at an unknown time. the patient has mild shortness of breath jg9 18:04 15:55 BP 135 / 83; Pulse 91bpm; Resp 25bpm; Pulse Ox 95% RA; jg9 jg9
--- NOTE | 2022-03-01 17:50 | EDPHYS ---
Physician Documentation [facility] Name: Camden Godinez Age: 36 yrs Sex: Male : 1985 Arrival Date: 03/01/2022 Time: 13:03 Bed 16 Private MD: ED Physician Pavel Quijano HPI: 03/01 13:30 This 36 yrs old Male presents to ER via Ambulatory with complaints of Pain With cp Urination, Breathing Difficulty, Headache. 13:30 Type of Exposure: heat. cp 13:30 Context: The problem was sustained outdoors, at work. Onset: The symptoms/episode cp began/occurred yesterday. Symptoms: headache, shortness of breath, painful urination, dark colored urine, nausea. 13:30 Patient reports working outside all day yesterday. Started having muscle cramping, cp headache, chest pressure, shortness of breath, burning with urination and dark colored urine. Drank fluids all night, but urine now appears dark, headache. Historical: - Allergies: 13:12 No Known Allergies; hb - PMHx: 13:12 Hypertension; hb - Immunization history:: Adult Immunizations up to date. - Social history:: Smoking status: Patient denies any tobacco usage or history of. ROS: 13:33 Constitutional: Positive for body aches, Negative for fever, poor PO intake. cp 13:33 Eyes: Negative for injury, pain, redness, and discharge. cp 13:33 ENT: Negative for drainage from ear(s), ear pain, sore throat, difficulty swallowing, difficulty handling secretions. 13:33 Cardiovascular: Negative for chest pain, edema, palpitations. 13:33 Respiratory: Positive for shortness of breath, Negative for cough, wheezing. 13:33 Abdomen/GI: Positive for nausea, Negative for diarrhea, constipation, black/tarry stool, rectal bleeding, active vomiting. 13:33 Back: Negative for pain at rest, pain with movement. 13:33 : Positive for burning with urination, dark colored urine. 13:33 Skin: Negative for cellulitis, rash. 13:33 Neuro: Positive for headache, Negative for altered mental status, loss of consciousness, syncope. 13:33 All other systems are negative. Exam: 13:33 ECG was reviewed by the Attending Physician. cp 13:35 Constitutional: The patient appears in no acute distress, alert, awake, cp non-diaphoretic, non-toxic, well developed, well nourished, overweight 13:35 Head/Face: Normocephalic, atraumatic. cp 13:35 Eyes: Periorbital structures: appear normal, Pupils: equal, round, and reactive to light and accomodation, Extraocular movements: intact throughout, Conjunctiva: normal, no exudate, no injection, Sclera: no appreciated abnormality, Lids and lashes: appear normal, bilaterally. 13:35 ENT: External ear(s): are unremarkable, Ear canal(s): are normal, clear, TM's: dullness, bilaterally, Nose: is normal, Mouth: Lips: moist, Oral mucosa: pink and intact, moist, Posterior pharynx: Airway: no evidence of obstruction, patent, swelling, is not appreciated, erythema, is not appreciated, exudate, is not appreciated. 13:35 Neck: ROM/movement: is normal, is supple, without pain, no range of motions limitations, no meningismus, no nuchal rigidity, Lymph nodes: no appreciated lymphadenopathy. 13:35 Chest/axilla: Inspection: normal, Palpation: is normal, no crepitus, no tenderness. 13:35 Cardiovascular: Rate: tachycardic, Rhythm: regular, Edema: is not appreciated, JVD: is not appreciated. 13:35 Respiratory: the patient does not display signs of respiratory distress, Respirations: normal, no use of accessory muscles, no retractions, labored breathing, is not present, Breath sounds: are clear throughout, no decreased breath sounds, no stridor, no wheezing. 13:35 Abdomen/GI: Inspection: abdomen appears normal, Bowel sounds: active, all quadrants, Palpation: abdomen is soft and non-tender, in all quadrants. 13:35 Back: pain, that is moderate, of the left low back and left mid back, ROM is painful, with all movement, Straight leg raises: of both lower extremities does not illicit pain. 13:35 Skin: cellulitis, is not appreciated, no rash present. 13:35 Neuro: Orientation: to person, place \\T\\ time. Mentation: is normal, Cerebellar function: Romberg testing is negative, Motor: moves all fours, strength is normal, Sensation: is normal. Vital Signs: 13:09 BP 156 / 90; Pulse 103; Resp 20; Temp 98.3; Pulse Ox 99% ; Weight 115.67 kg; Height 6 hb ft. 1 in. (185.42 cm); Pain 7/10; 15:55 BP 135 / 83; Pulse 91; Resp 25; Pulse Ox 95% on R/A; Pain 7/10; jg9 16:00 BP 145 / 98; Pulse 90; Resp 24 S; Pulse Ox 96% on R/A; jg9 16:30 BP 134 / 90; Pulse 88; Resp 22 S; Pulse Ox 96% on R/A; jg9 17:45 BP 135 / 81; Pulse 89; Resp 18 S; Pulse Ox 97% on R/A; Pain 3/10; jg9 13:09 Body Mass Index 33.64 (115.67 kg, 185.42 cm) hb MDM: 13:16 Patient medically screened. cp 17:46 Data reviewed: vital signs, nurses notes, lab test result(s), EKG, radiologic studies, cp CT scan, plain films. Test interpretation: by ED physician or midlevel provider: ECG, plain radiologic studies. Response to treatment: the patient's symptoms have markedly improved after treatment. ED course: VSS. Patient reports headache and pain resolved. Low suspicion for meningitis and patient refuses spinal tap at this time. Will discharge to home for continued monitoring with instructions to return to Ed worsening symptoms. 03/01 13:23 Order name: Basic Metabolic Panel; Complete Time: 14:33 cp 03/01 14:33 Interpretation: Normal except: NA 134; GLUC 110; CRE 1.37; GFR 69. cp 03/01 13:23 Order name: CBC with Diff; Complete Time: 14:25 cp 03/01 14:26 Interpretation: Abnormal: WBC 19.30; MPV 7.4; LIA% 80.0; LYM% 10.3; NEUT A 15.4; MNA cp 1.7. 03/01 13:23 Order name: LFT's; Complete Time: 14:33 cp 03/01 14:33 Interpretation: Normal except: BILIT 1.4; GLOB 3.7; A/G 1.0. cp 03/01 13:23 Order name: Magnesium; Complete Time: 14:33 cp 03/01 13:23 Order name: Troponin HS; Complete Time: 14:33 cp 08/16 14:34 Interpretation: Reviewed. cp 08/ 13:23 Order name: CK; Complete Time: 14:33 cp 08/ 13:23 Order name: XRAY Chest (1 view); Complete Time: 14:25 cp 08/16 13:23 Order name: Urine Microscopic Only; Complete Time: 14:25 cp 08/16 14:26 Interpretation: Reviewed. cp 03/01 13:35 Order name: COVID-19 SARS RT PCR (Document "Date of Onset" if Symptomatic); Complete cp Time: 15:26 / 15:27 Interpretation: Reviewed. cp 08/ 13:40 Order name: Urine Dipstick-Ancillary; Complete Time: 14:25 EDMS 08/ 14:26 Interpretation: Abnormal: UBLD Trace-intact. cp / 14:25 Order name: Urine Culture EDNM / 14:33 Order name: Lactate; Complete Time: 17:25 cp 08/ 17:25 Interpretation: LAC 0.7; Reviewed. 03/01 14:33 Order name: Procalcitonin; Complete Time: 17:25 cp 08/ 17:25 Interpretation: Abnormal: Procalcitonin 0.32. cp 08/16 14:33 Order name: Blood Culture Adult (2) cp 08/ 13:23 Order name: EKG; Complete Time: 13:24 cp 08/16 13:23 Order name: Cardiac monitoring; Complete Time: 13:24 cp 08/ 13:23 Order name: EKG - Nurse/Tech; Complete Time: 13:33 cp / 13:23 Order name: IV Saline Lock; Complete Time: 13:53 cp / 13:23 Order name: Labs collected and sent; Complete Time: 13:53 cp 08/ 13:23 Order name: O2 Sat Monitoring; Complete Time: 13:24 cp 08/16 13:23 Order name: Urine Dipstick-Ancillary (obtain specimen); Complete Time: 13:47 cp 08/16 14:39 Order name: CT Stone Protocol; Complete Time: 15:26 cp 08/16 15:27 Interpretation: Report reviewed. cp 08/16 14:39 Order name: CT Head Brain wo Cont; Complete Time: 15:26 cp 08/16 15:27 Interpretation: Report reviewed. cp EC:33 Rate is 97 beats/min. Rhythm is regular. IN interval is normal. QRS interval is normal. cp QT interval is normal. T waves are Inverted in lead aVR. Interpreted by me. Reviewed by me. Administered Medications: 13:58 Drug: Benadryl (diphenhydrAMINE) 25 mg Route: IVP; Site: left antecubital; jg9 14:42 Follow up: Response: No adverse reaction jg9 14:00 Drug: NS 0.9% 1000 ml Route: IV; Rate: 1 bolus; Site: left antecubital; jg9 16:00 Follow up: IV Status: Completed infusion; IV Intake: 1000ml jg9 14:00 Drug: Reglan (metoCLOPramide) 10 mg Route: IVP; Site: left antecubital; jg9 16:00 Follow up: Response: No adverse reaction; Pain is decreased jg9 15:14 Drug: Ketorolac 15 mg Route: IVP; Site: left antecubital; jg9 16:15 Follow up: Response: No adverse reaction; Pain is decreased jg9 16:17 Drug: NS 0.9% 1000 ml Route: IV; Rate: 1 bolus; Site: left antecubital; jg9 18:06 Follow up: IV Status: Completed infusion; IV Intake: 1000ml jg9 Disposition: 21:36 Co-signature as Attending Physician, Pavel Quijano DO I was immediately available on-site ms3 in the Emergency Department for consultation in the care of the patient.. Disposition Summary: 03/01/22 17:49 Discharge Ordered Location: Home cp Problem: new cp Symptoms: have improved cp Condition: Stable cp Diagnosis - Elevated white blood cell count, unspecified cp - Low back pain cp - Headache cp - Heat exhaustion, unspecified, initial encounter cp Followup: cp - With: Private Physician - When: 1 - 2 days - Reason: Recheck today's complaints Discharge Instructions: - Discharge Summary Sheet cp - Acute Back Pain, Adult cp - Heat Exhaustion cp - Leukocytosis cp - Rehydration, Adult cp - Back Exercises cp - Preventing Heat Exhaustion, Adult cp Forms: - Medication Reconciliation Form cp - Thank You Letter cp - Antibiotic Education cp - Prescription Opioid Use cp - Work release form jg9 Signatures: Dispatcher [employer] EDKaden Duncan PA PA cp Baxter, Heather, RN RN hb Pavel Quijano DO DO ms3 Rhonda Arellano RN RN jg9 Corrections: (The following items were deleted from the chart) 03/02 15:38 03/01 13:30 Symptoms: headache, chest pain, shortness of breath, painful urination, cp dark colored urine, nausea, cp
[2022-03-01 19:29] VITALS: TEMP 98.3
[2022-03-01 20:00] VITALS: BP 135/81; O2SAT 97
--- NOTE | 2022-03-03 07:57 | EKG ---
Test Date: 2022-03-01 Test Time: 13:27:24 Animal Trainer: JAME MEASUREMENT RESULTS: Intervals: Rate: 97 GA: 146 QRSD: 84 QT: 336 QTc: 426 Rumsey: P: 7 GA: 146 QRS: 81 T: 6 INTERPRETIVE STATEMENTS: Normal sinus rhythm Normal ECG Compared to ECG 03/19/2019 00:53:41 Sinus tachycardia no longer present Electronically Signed On 03-03-22 07:54:43 CDT by Estuardo Bailey
== END 2022-03-01 18:15 | disposition home or self-care (01) ==
LOC: ER 12:59
DX: R51.9 Headache, unspecified (principal); T67.5XXA Heat exhaustion, unspecified, initial encounter; D72.829 Elevated white blood cell count, unspecified; M54.50 Low back pain, unspecified; I10 Essential (primary) hypertension; Z20.822 Contact with and (suspected) exposure to COVID-19
CPT/HCPCS: 87040 ×2; 87088; 85025; 87086; 80048; 36415; 83735; 82550; 80076; 83605; 84484; 84145; 70450; 76377; 74176; 71045; U0003; J2765; J1200; J7030 ×2; 81003; 81015; 87077; 87186; 93005; 96361; 96374; 96375; 99284

== ENCOUNTER 2022-11-07 21:35 | Emergency (ER) | payer BC, OTHER ==
--- OUTSIDE RECORDS SUMMARY | 2022-11-07 21:42 | XMS REPORT | Continuity of Care Document ---
:1985 Author Organization [facility] t Address [address] [place] [address] Care Team Providers Name Role Phone DINO LOPEZ Primary Care Physician Unavailable JAGRUTI CRAIG Attending Clinician Unavailable Jagruti Small S Attending Clinician HADLEY BRYANT Attending Clinician Unavailable Dino Lopez MD Attending Clinician DINO LOPEZ Attending Clinician Unavailable AMBER AMADO Attending Clinician Unavailable Amber Amado DO Attending Clinician Doctor Unassigned, [place] Attending Clinician Unavailable BURAK MURDOCK Attending Clinician Unavailable Burak Murdock MD Attending Clinician Unknown, Attending Attending Clinician Unavailable Lab, Ang - Db Attending Clinician Unavailable AMANDA MCGINNIS Attending Clinician Unavailable Amanda Mcginnis MD Attending Clinician Osmany Levine MD Attending Clinician [phone] OSMANY LEVINE Attending Clinician Unavailable Juany Sood RN Attending Clinician Windy Aguirre RN Attending Clinician Unavailable Leland Ybarra Attending Clinician Bea RODRIGUEZ Miguel Angel Cope Attending Clinician Colt Gomez DO Attending Clinician [phone] JAGRUTI CRAIG Admitting Clinician Unavailable AMANDA MCGINNIS Admitting Clinician Unavailable Colt Gomez DO Admitting Clinician [phone] Payers Payer Name Policy Type Policy Number Effective Date Expiration Date S juan [employer] [place] - [id number] 2022 00:00:00 OUT OF STATE CIGNA II [id number] 2021 00:00:00 Problems Condition Condition Condition Status Onset Resolution Last Treating Co mments Source Name Details Category Date Date Treatment Clinician Date Injury of Injury of Disease Active Uni vers right right 5-12 ity of knee, knee, 00:00: [place] initial initial 00 Medical encounter encounter Bran ch Obesity Obesity Disease Active Univers (BMI (BMI 5-11 ity of 30-39.9) 30-39.9) 00:00: [place] [address] Medical Branch Acute Acute Disease Active Univers nonintract nonintract 5-16 it y of able able 00:00: [place] headache, headache, 00 Medi noemi unspecifie unspecifie Br anch d headache d headache type type Dizziness Dizziness Disease Active Uni vers 5-16 ity of 00:00: [place] [address] Medical [place] History of History of Disease Active U nivers chest pain chest pain 5-16 it y of 00:00: [place] [address] Medical Branch Left hand Left hand Disease Active Uni vers paresthesi paresthesi 5-16 it y of a a 00:00: [place] [address] Medical Branch Tobacco Tobacco Disease Active Univers use use 5-16 ity of disorder disorder 00:00: [place] [address] Medical Branch Allergies, Adverse Reactions, Alerts Allergy Allergy Status Severity Reaction(s) Onset Inactive Treating Comm ents Source Name Type Date Date Clinician NO KNOWN Drug Active Univers ALLERGIE Class ity of S [facility] [place] [facility] Family History Family Member Diagnosis Comments Start Date Stop Date Source Natural brother Diabetes Universit y of [facility] [place] [facility] Natural father Hypertension Universi ty [facility] Natural mother Diabetes University [facility] Natural mother Hyperlipidemia Univer sity [facility] Natural mother Hypertension Universi ty [facility] Paternal Coronary Heart University of grandmother Disease [facility] [place] [facility] Natural sister Hypertension [facility] Social History Social Habit Start Date Stop Date Quantity Comments Source History SDKY University o f Alcohol Frequency [facility] edical Branch History [place]KY University o f Alcohol Std Drinks [facility] Branch History [facility] o f Alcohol Binge [facility] Branch History of tobacco Snuff User Univer sity of use [facility] [place] [facility] Alcohol intake 2022-10-20 2022-10-20 Current drinker Unive rsity of 00:00:00 00:00:00 of alcohol [facility] (finding) Branch Exposure to 2022-09-23 2022-10-03 Not sure University of SARS-CoV-2 (event) 00:00:00 15:13:00 [facility] [place] [facility] Tobacco use and 2022-06-23 2022-06-23 Former smokeless Uni versity of exposure 00:00:00 00:00:00 tobacco user [facility]ly [facility] Tobacco Comment 2022-06-23 2022-06-23 quit September 2020 Univ ersity of 00:00:00 00:00:00 [facility] [place] [facility] Cigarettes smoked 2022-06-23 2022-06-23 Univers ity of current (pack per 00:00:00 00:00:00 [facility] ) - Reported Branch Cigarette 2022-06-23 2022-06-23 University of pack-years 00:00:00 00:00:00 [facility] [place] [facility] Alcohol Comment 2020-11-24 2020-11-24 6-8 beers twice Univ ersity of 00:00:00 00:00:00 a week for the [facility] last 10 years Branch Sex Ass[birth year] At [birth year] Universit y of 00:00:00 00:00:00 [facility] [place] [facility] Smoking Status Start Date Stop Date Source Ex-smoker 2022-06-23 00:00:00 2022-06-23 00:00:00 [facility] Medications Ordered Filled Start Stop Current Ordering Indication Dosage Frequency Signature Comments Components Source Medication Medication Date Date Medication? Clinician (SIG) Name Name acetaminoph 2022- No 1000mg 1,000 mg, Univers en 10-21 04-06 Oral, ity of (TYLENOL) 00:15: 23:27 [place]CE[place] :[place] dose, On Medical 1,000 mg Neelam 10/20/22 Branc h at 1915, Routine ketorolac 2022- No 30mg 30 mg, Unive rs (TORADOL) 10-20 Slow IV ity of injection 23:45: 22:44 Push, [place] 30 mg 00 :00 ONCE, 1 Medical dose, On Branch Neelam 10/20/22 at 1845, TIAN ondansetron 2022- No 4mg 4 mg, Slow Univers (ZOFRAN 10-20 IV Push, ity of (PF)) 21:54: 21:59 ONCE, 1 [place] injection 4 00 :00 dose, On Medi noemi mg Neelam 10/20/22 Branch at 1700, TIAN morpHINE (4 2022- No 4mg 4 mg, Slow Univers mg/mL) 10-20 IV Push, ity of injection 4 21:54: 21:59 [place]CE[place] 1 [place] mg 00 :[place] dose, On Medical Neelam 10/20/22 Branch at 1700, STAT iopamidol 2022- No [id number] 100mL 100 mL, Univers (ISOVUE 10-20 Intravenou ity o f 370-500 mL) 21:49: 22:00 s, ONCE, 1 [place] injection 00 :00 dose, On Medica l 100 mL Neelam 10/20/22 Branch at 1700, Routine ketorolac Yes [id number] 10mg Take 1 Un emelyn 10 mg 10-20 tablet by ity of tablet 00:00: mouth [place] 00 every 6 Medical (six) Branch hours as needed for Pain (scale 4-6). dexamethaso 2022-0 2022- No 10mg 10 mg, Uni vers ne 10-01-18 Oral, ity of (DECADRON 04:36: 04:39 ONCE, 1 [place] PHOSPHATE[place] 00 :00 dose, On Medic al injection Fri Branch 10 mg 09/30/22 at 2345, TIAN traMADoL 50 2022-0 2022- Yes [id number] 50mg Take 1 Uni vers mg tablet 08-31 tablet by ity of 00:00: 05:59 mouth [place] 00 :00 every 6 Medical (six) Branch hours as needed for Pain (scale 4-6) for up to 7 days. Indication s: acute pain traMADoL 50 2022-0 2022- Yes [id number] 50mg Take 1 Uni vers mg tablet 08-31- tablet by ity of 00:00: 05:59 mouth [place] 00 :00 every 6 Medical (six) Branch hours as needed for Pain (scale 4-6) for up to 7 days. Indication s: acute pain traMADoL 50 2022-0 2022- No [id number] 50mg Take 1 Uni vers mg tablet 08-31- tablet by ity of 00:00: 05:59 mouth [place] 00 :00 every 6 Medical (six) Branch hours as needed for Pain (scale 4-6) for up to 7 days. Indication s: acute pain divalproex 2022-0 Yes [id number] 750mg Take 3 Univers ER 2-02 tablets by ity of (DEPAKOTE 00:00: [place] 250 mg 00 the Medical 24 hr morning. Branch tablet QUEtiapine 2022-0 Yes [id number] 50mg Take 1 U nivers 50 mg 2-02 tablet by ity of tablet 00:00: mouth at [place] 00 bedtime. Medical Branch divalproex 2022-0 Yes [id number] 750mg Take 3 Univers ER 2-02 tablets by ity of (DEPAK[place] 00:00: [place] 250 mg 00 the Medical 24 hr morning. Branch tablet QUEtiapine 2022-0 Yes [id number] 50mg Take 1 U nivers 50 mg 2-02 tablet by ity of tablet 00:00: mouth at [place] 00 bedtime. Medical Branch divalproex 2022-0 Yes [id number] 750mg Take 3 Univers ER 2-02 tablets by ity of ([place] 00:00: [place] 250 mg 00 the Medical 24 hr morning. Branch tablet QUEtiapine 2022-0 Yes [id number] 50mg Take 1 U nivers 50 mg 2-02 tablet by ity of tablet 00:00: mouth at [place] 00 bedtime. Medical Branch divalproex 2022-0 Yes [id number] 750mg Take 3 Univers ER 2-02 tablets by ity of ([place] 00:00: [place] 250 mg 00 the Medical 24 hr morning. Branch tablet QUEtiapine 3-0 Yes [id number] 50mg Take 1 U nivers 50 mg 2-02 tablet by ity of tablet 00:00: mouth at [place] 00 bedtime. Medical Branch divalproex 3-0 Yes [id number] 750mg Take 3 Univers ER 2-02 tablets by ity of ([place] 00:00: [place] 250 mg 00 the Medical 24 hr morning. Branch tablet QUEtiapine 3-0 Yes [id number] 50mg Take 1 U nivers 50 mg 2-02 tablet by ity of tablet 00:00: mouth at [place] 00 bedtime. Medical Branch divalproex 3-0 Yes [id number] 750mg Take 3 Univers ER 2-02 tablets by ity of ([place] 00:00: [place] 250 mg 00 the Medical 24 hr morning. Branch tablet QUEtiapine 3-0 Yes [id number] 50mg Take 1 U nivers 50 mg 2-02 tablet by ity of tablet 00:00: mouth at [place] 00 bedtime. Medical Branch divalproex 3-0 Yes [id number] 750mg Take 3 Univers ER 2-02 tablets by ity of ([place] 00:00: [place] 250 mg 00 the Medical 24 hr morning. Branch tablet QUEtiapine 3-0 Yes [id number] 50mg Take 1 U nivers 50 mg 2-02 tablet by ity of tablet 00:00: mouth at [place] 00 bedtime. Medical Branch divalproex 3-0 Yes [id number] 750mg Take 3 Univers ER 2-02 tablets by ity of ([place] 00:00: [place] 250 mg 00 the Medical 24 hr morning. Branch tablet QUEtiapine 3-0 Yes [id number] 50mg Take 1 U nivers 50 mg 2-02 tablet by ity of tablet 00:00: mouth at [place] 00 bedtime. Medical Branch divalproex 2023-0 Yes [id number] 750mg Take 3 Univers ER 2-02 tablets by ity of ([place] 00:00: [place] 250 mg 00 the Medical 24 hr morning. Branch tablet QUEtiapine 2023-0 Yes [id number] 50mg Take 1 U nivers 50 mg 2-02 tablet by ity of tablet 00:00: mouth at [place] 00 bedtime. Medical Branch divalproex 3-0 Yes [id number] 750mg Take 3 Univers ER 2-02 tablets by ity of ([place] 00:00: [place] 250 mg 00 the Medical 24 hr morning. Branch tablet QUEtiapine 2022-0 Yes [id number] 50mg Take 1 U nivers 50 mg 2-02 tablet by ity of tablet 00:00: mouth at [place] 00 bedtime. Medical Branch divalproex 2022-0 Yes [id number] 750mg Take 3 Univers ER 2-02 tablets by ity of ([place] 00:00: [place] 250 mg 00 the Medical 24 hr morning. Branch tablet QUEtiapine 2022-0 Yes [id number] 50mg Take 1 U nivers 50 mg 2-02 tablet by ity of tablet 00:00: mouth at [place] 00 bedtime. Medical Branch divalproex 2022-0 Yes [id number] 750mg Take 3 Univers ER 2-02 tablets by ity of ([place] 00:00: [place] 250 mg 00 the Medical 24 hr morning. Branch tablet QUEtiapine 2022-0 Yes [id number] 50mg Take 1 U nivers 50 mg 2-02 tablet by ity of tablet 00:00: mouth at [place] 00 bedtime. Medical Branch divalproex 2022-0 Yes [id number] 750mg Take 3 Univers ER 2-02 tablets by ity of (DEPAKOTE 00:00: [place] 250 mg 00 the Medical 24 hr morning. Branch tablet QUEtiapine 2022-0 Yes [id number] 50mg Take 1 U nivers 50 mg 2-02 tablet by ity of tablet 00:00: mouth at [place] 00 bedtime. Medical Branch divalproex 3-0 Yes [id number] 750mg Take 3 Univers ER 2-02 tablets by ity of (DEPAKOTE 00:00: [place] 250 mg 00 the Medical 24 hr morning. Branch tablet QUEtiapine 3-0 Yes [id number] 50mg Take 1 U nivers 50 mg 2-02 tablet by ity of tablet 00:00: mouth at [place] 00 bedtime. Medical Branch divalproex 2023-0 Yes [id number] 750mg Take 3 Univers ER 2-02 tablets by ity of (DEPAKOTE 00:00: [place] 250 mg 00 the Medical 24 hr morning. Branch tablet QUEtiapine 2022-0 Yes [id number] 50mg Take 1 U nivers 50 mg 2-02 tablet by ity of tablet 00:00: mouth at [place] 00 bedtime. Medical Branch divalproex 2022-0 Yes [id number] 750mg Take 3 Univers ER 2-02 tablets by ity of (DEPAKOTE 00:00: [place] ER[place] 250 mg 00 the Medical 24 hr morning. Branch tablet QUEtiapine 2022-0 Yes [id number] 50mg Take 1 U nivers 50 mg 2-02 tablet by ity of tablet 00:00: mouth at [place] 00 bedtime. Medical Branch divalproex 2022-0 Yes [id number] 750mg Take 3 Univers ER 2-02 tablets by ity of (DEPAKOTE 00:00: [place] ER[place] 250 mg 00 the Medical 24 hr morning. Branch tablet QUEtiapine 2022-0 Yes [id number] 50mg Take 1 U nivers 50 mg 2-02 tablet by ity of tablet 00:00: mouth at [place] 00 bedtime. Medical Branch divalproex 2022-0 Yes [id number] 750mg Take 3 Univers ER 2-02 tablets by ity of (DEPAKOTE 00:00: [place] ER[place] 250 mg 00 the Medical 24 hr morning. Branch tablet QUEtiapine 2022-0 Yes [id number] 50mg Take 1 U nivers 50 mg 2-02 tablet by ity of tablet 00:00: mouth at [place] 00 bedtime. Medical Branch divalproex 2022-0 Yes [id number] 750mg Take 3 Univers ER 2-02 tablets by ity of (DEPAKOTE 00:00: [place] ER[place] 250 mg 00 the Medical 24 hr morning. Branch tablet QUEtiapine 2022-0 Yes [id number] 50mg Take 1 U nivers 50 mg 2-02 tablet by ity of tablet 00:00: mouth at [place] 00 bedtime. Medical Branch divalproex 2022-0 Yes [id number] 750mg Take 3 Univers ER 2-02 tablets by ity of (DEPAKOTE 00:00: [place] ER[place] 250 mg 00 the Medical 24 hr morning. Branch tablet QUEtiapine 2022-0 Yes [id number] 50mg Take 1 U nivers 50 mg 2-02 tablet by ity of tablet 00:00: mouth at [place] 00 bedtime. Medical Branch divalproex 2022-0 Yes [id number] 750mg Take 3 Univers ER 2-02 tablets by ity of (DEPAKOTE 00:00: [place] 250 mg 00 the Medical 24 hr morning. Branch tablet QUEtiapine 2022-0 Yes [id number] 50mg Take 1 U nivers 50 mg 2-02 tablet by ity of tablet 00:00: mouth at [place] 00 bedtime. Medical Branch divalproex 2022-0 Yes [id number] 750mg Take 3 Univers ER 2-02 tablets by ity of (DEPAKOTE 00:00: [place] ER[place] 250 mg 00 the Medical 24 hr morning. Branch tablet QUEtiapine 2022-0 Yes [id number] 50mg Take 1 U nivers 50 mg 2-02 tablet by ity of tablet 00:00: mouth at [place] 00 bedtime. Medical Branch HYDROcodone 2022-2022- No [id number] 1{tbl} Take 1 U nivers -acetaminop 1-02 01-10 tablet by it y of hen 5-325 00:00: 05:59 mouth [place] mg tablet 00 :00 every 4 Medical (four) Branch hours as needed for Pain (scale 1-3) for up to 7 days. Indication s: acute pain HYDROcodone 2022-2022- No 4647 1{tbl} Take 1 U nivers -acetaminop 1-02 01-10 tablet by it y of hen 5-325 00:00: 05:59 mouth [place] mg tablet 00 :00 every 4 Medical (four) Branch hours as needed for Pain (scale 1-3) for up to 7 days. Indication s: acute pain HYDROcodone 2022-2022- No 4647 1{tbl} Take 1 U nivers -acetaminop 1-02 01-10 tablet by it y of hen 5-325 00:00: 05:59 mouth [place] mg tablet 00 :00 every 4 Medical (four) Branch hours as needed for Pain (scale 1-3) for up to 7 days. Indication s: acute pain HYDROcodone 2022- No 4647 1{tbl} Take 1 U nivers -acetaminop -08 17-10 tablet by it y of hen 5-325 00:00: 05:59 mouth [place] mg tablet 00 :00 every 4 Medical (four) Branch hours as needed for Pain (scale 1-3) for up to 7 days. Indication s: acute pain HYDROcodone 2022- No 4647 1{tbl} Take 1 U nivers -acetaminop 07-18-10 tablet by it y of hen 5-325 00:00: 05:59 mouth [place] mg tablet 00 :00 every 4 Medical (four) Branch hours as needed for Pain (scale 1-3) for up to 7 days. Indication s: acute pain divalproex 2021-07 Yes [id number] 750mg Take 3 Univers ER 2-09 tablets by ity of (DEPAK[place] 00:00: [place] ER[place] 250 mg 00 the Medical 24 hr morning. Branch tablet divalproex 2021-07 Yes [id number] 750mg Take 3 Univers ER 2-09 tablets by ity of (DEPAKOTE 00:00: [place] 250 mg 00 the Medical 24 hr morning. Branch tablet divalproex 2021-07 Yes [id number] 750mg Take 3 Univers ER 2-09 tablets by ity of (DEPAKOTE 00:00: [place] ER[place] 250 mg 00 the Medical 24 hr morning. Branch tablet divalproex 2021-07 Yes [id number] 750mg Take 3 Univers ER 2-09 tablets by ity of (DEPAKOTE 00:00: [place] ER[place] 250 mg 00 the Medical 24 hr morning. Branch tablet divalproex 2021-07 Yes [id number] 750mg Take 3 Univers ER 2-09 tablets by ity of (DEPAKOTE 00:00: [place] ER[place] 250 mg 00 the Medical 24 hr morning. Branch tablet divalproex 2021-07 Yes [id number] 750mg Take 3 Univers ER 2-09 tablets by ity of (DEPAKOTE 00:00: [place] ER[place] 250 mg 00 the Medical 24 hr morning. Branch tablet divalproex 2021-07 Yes [id number] 750mg Take 3 Univers ER 2-09 tablets by ity of (DEPAKOTE 00:00: [place] ER[place] 250 mg 00 the Medical 24 hr morning. Branch tablet divalproex 2021-07 Yes [id number] 750mg Take 3 Univers ER 2-09 tablets by ity of (DEPAKOTE 00:00: [place] ER[place] 250 mg 00 the Medical 24 hr morning. Branch tablet divalproex 2021-07 Yes [id number] 750mg Take 3 Univers ER 2-09 tablets by ity of (DEPAKOTE 00:00: [place] ER[place] 250 mg 00 the Medical 24 hr morning. Branch tablet divalproex 2021-07 Yes [id number] 750mg Take 3 Univers ER 2-09 tablets by ity of (DEPAKOTE 00:00: [place] ER[place] 250 mg 00 the Medical 24 hr morning. Branch tablet divalproex 2021-07 Yes [id number] 750mg Take 3 Univers ER 2-09 tablets by ity of (DEPAKOTE 00:00: [place] ER[place] 250 mg 00 the Medical 24 hr morning. Branch tablet divalproex 2021-07 Yes [id number] 750mg Take 3 Univers ER 2-09 tablets by ity of (DEPAKOTE 00:00: [place] ER[place] 250 mg 00 the Medical 24 hr morning. Branch tablet divalproex 2021-07 Yes [id number] 750mg Take 3 Univers ER 2-09 tablets by ity of (DEPAKOTE 00:00: [place] ER[place] 250 mg 00 the Medical 24 hr morning. Branch tablet divalproex 2021-07 Yes [id number] 750mg Take 3 Univers ER 2-09 tablets by ity of (DEPAKOTE 00:00: [place] ER[place] 250 mg 00 the Medical 24 hr morning. Branch tablet divalproex 2021-07 Yes [id number] 750mg Take 3 Univers ER 2-09 tablets by ity of ([place]PAK[place] 00:00: [place] ER[place] 250 mg 00 the Medical 24 hr morning. Branch tablet divalproex 2021-07- No [id number] 750mg Take 3 Univers ER 2-09 02-02 tablets by ity of (DEPAKOTE 00:00: 00:00 mouth in [place] ER) 250 mg 00 :00 the Medical 24 hr morning. Branch tablet divalproex 2021-07- No [id number] 750mg Take 3 Univers ER 2-08-18 tablets by ity of (DEPAKOTE 00:00: 00:00 mouth in [place] ER) 250 mg 00 :00 the Medical 24 hr morning. Branch tablet divalproex 2021-07- No [id number] 750mg Take 3 Univers ER 208-18 tablets by ity of (DEPAKOTE 00:00: 00:00 mouth in [place] ER) 250 mg 00 :00 the Medical 24 hr morning. Branch tablet divalproex 2021-07- No [id number] 750mg Take 3 Univers ER 208-18 tablets by ity of (DEPAKOTE 00:00: 00:00 mouth in [place] ER) 250 mg 00 :00 the Medical 24 hr morning. Branch tablet divalproex 2021-07- No [id number] 750mg Take 3 Univers ER 08-25 tablets by ity of (DEPAKOTE 00:00: 00:00 mouth in [place] ER) 250 mg 00 :00 the Medical 24 hr morning. Branch tablet QUEtiapine 2021-07 Yes [id number] 50mg Take 1 U nivers 50 mg 2-08 tablet by ity of tablet 00:00: mouth at [place] [address] bedtime. Medical Branch QUEtiapine 2021-07 Yes [id number] 50mg Take 1 U nivers 50 mg 2-08 tablet by ity of tablet 00:00: mouth at [place] [address] bedtime. Medical Branch QUEtiapine 2021-07 Yes [id number] 50mg Take 1 U nivers 50 mg 2-08 tablet by ity of tablet 00:00: mouth at [place] 00 bedtime. Medical Branch QUEtiapine 2021-07 Yes [id number] 50mg Take 1 U nivers 50 mg 2-08 tablet by ity of tablet 00:00: mouth at [place] 00 bedtime. Medical Branch QUEtiapine 2021-07 Yes [id number] 50mg Take 1 U nivers 50 mg 2-08 tablet by ity of tablet 00:00: mouth at [place] 00 bedtime. Medical Branch QUEtiapine 2021-07 Yes [id number] 50mg Take 1 U nivers 50 mg 2-08 tablet by ity of tablet 00:00: mouth at [place] 00 bedtime. Medical Branch QUEtiapine 2021-07 Yes [id number] 50mg Take 1 U nivers 50 mg 2-08 tablet by ity of tablet 00:00: mouth at [place] [address] bedtime. Medical Branch QUEtiapine 2021-07 Yes [id number] 50mg Take 1 U nivers 50 mg 2-08 tablet by ity of tablet 00:00: mouth at [place] [address] bedtime. Medical Branch QUEtiapine 2021-07 Yes [id number] 50mg Take 1 U nivers 50 mg 2-08 tablet by ity of tablet 00:00: mouth at [place] [address] bedtime. Medical Branch QUEtiapine 2021-07 Yes [id number] 50mg Take 1 U nivers 50 mg 2-08 tablet by ity of tablet 00:00: mouth at [place] [address] bedtime. Medical Branch QUEtiapine 2021-07 Yes [id number] 50mg Take 1 U nivers 50 mg 2-08 tablet by ity of tablet 00:00: mouth at [place] [address] bedtime. Medical Branch QUEtiapine 2021-07 Yes [id number] 50mg Take 1 U nivers 50 mg 2-08 tablet by ity of tablet 00:00: mouth at [place] [address] bedtime. Medical Branch QUEtiapine 2021-07 Yes [id number] 50mg Take 1 U nivers 50 mg 2-08 tablet by ity of tablet 00:00: mouth at [place] [address] bedtime. Medical Branch QUEtiapine 2021-07 Yes [id number] 50mg Take 1 U nivers 50 mg 2-08 tablet by ity of tablet 00:00: mouth at [place] [address] bedtime. Medical Branch QUEtiapine 2021-07 Yes [id number] 50mg Take 1 U nivers 50 mg 2-08 tablet by ity of tablet 00:00: mouth at [place] [address] bedtime. Medical Branch QUEtiapine 2021-07 Yes [id number] 50mg Take 1 U nivers 50 mg 2-08 tablet by ity of tablet 00:00: mouth at [place] [address] bedtime. Medical Branch QUEtiapine 2021-07- No [id number] 50mg Take 1 Univers 50 mg 2-08 -02 tablet by ity of tablet 00:00: 00:00 mouth at [place] 00 :00 bedtime. Medical Branch QUEtiapine 2021-07- No [id number] 50mg Take 1 Univers 50 mg 2-08 02-02 tablet by ity of tablet 00:00: 00:00 mouth at [place] 00 :00 bedtime. Medical Branch QUEtiapine 2021-07- No [id number] 50mg Take 1 Univers 50 mg 2-02 15- tablet by ity of tablet 00:00: 00:00 mouth at [place] 00 :00 bedtime. Medical Branch QUEtiapine 2021-07- No [id number] 50mg Take 1 Univers 50 mg 2- tablet by ity of tablet 00:00: 00:00 mouth at [place] 00 :00 bedtime. Medical Branch QUEtiapine 2021-07- No [id number] 50mg Take 1 Univers 50 mg 208-18 tablet by ity of tablet 00:00: 00:00 mouth at [place] 00 :00 bedtime. Medical Branch QUEtiapine 2021-07 Yes [id number] 25mg Take 1 U nivers 25 mg 1-09 tablet by ity of tablet 00:00: mouth at [place] 00 bedtime. Medical Branch QUEtiapine 2021-07 Yes [id number] 25mg Take 1 U nivers 25 mg 1-09 tablet by ity of tablet 00:00: mouth at [place] 00 bedtime. Medical Branch QUEtiapine 2021-07 Yes [id number] 25mg Take 1 U nivers 25 mg 1-09 tablet by ity of tablet 00:00: mouth at [place] 00 bedtime. Medical Branch QUEtiapine 2021-07 Yes [id number] 25mg Take 1 U nivers 25 mg 1-09 tablet by ity of tablet 00:00: mouth at [place] 00 bedtime. Medical Branch QUEtiapine 2021-07- No [id number] 25mg Take 1 Univers 25 mg -09 -08 tablet by ity of tablet 00:00: 00:00 mouth at [place] 00 :00 bedtime. Medical Branch QUEtiapine 2021-07- No [id number] 25mg Take 1 Univers 25 mg -09 12-08 tablet by ity of tablet 00:00: 00:00 mouth at [place] 00 :00 bedtime. Medical Branch QUEtiapine 2021-07- No [id number] 25mg Take 1 Univers 25 mg -09 12-08 tablet by ity of tablet 00:00: 00:00 mouth at [place] 00 :00 bedtime. Medical Branch QUEtiapine 2021-07- No [id number] 25mg Take 1 Univers 25 mg 09 12-08 tablet by ity of tablet 00:00: 00:00 mouth at [place] 00 :00 bedtime. Medical Branch SERTraline 2021-0 Yes [id number] 50mg Take 1 Univers 50 mg 9-21 tablet by ity of tablet 00:00: mouth in [place] 00 the Medical morning. Branch SERTraline 2021-0 Yes [id number] 50mg Take 1 Univers 50 mg 9-21 tablet by ity of tablet 00:00: mouth in [place] 00 the Medical morning. Branch SERTraline 2021-0 Yes [id number] 50mg Take 1 Univers 50 mg 9-21 tablet by ity of tablet 00:00: mouth in [place] 00 the Medical morning. Branch SERTraline 2021-0 Yes [id number] 50mg Take 1 Univers 50 mg 9-21 tablet by ity of tablet 00:00: mouth in [place] 00 the Medical morning. Branch SERTraline 2021-0 Yes [id number] 50mg Take 1 Univers 50 mg 9-21 tablet by ity of tablet 00:00: mouth in [place] 00 the Medical morning. Branch SERTraline 2021-0 Yes [id number] 50mg Take 1 Univers 50 mg 9-21 tablet by ity of tablet 00:00: mouth in [place] 00 the Medical morning. Branch SERTraline 2021-0 2021- No [id number] 50mg Take 1 Univers 50 mg 9-21 12-08 tablet by ity of tablet 00:00: 00:00 mouth in [place] 00 :00 the Medical morning. Branch SERTraline 2021-0 2021- No [id number] 50mg Take 1 Univers 50 mg 9-21 12-08 tablet by ity of tablet 00:00: 00:00 mouth in [place] 00 :00 the Medical morning. Branch SERTraline 2021-0 2021- No [id number] 50mg Take 1 Univers 50 mg 9-21 12-08 tablet by ity of tablet 00:00: 00:00 mouth in [place] 00 :00 the Medical morning. Branch SERTraline 2021-0 2- No [id number] 50mg Take 1 Univers 50 mg 9-21 12-08 tablet by ity of tablet 00:00: 00:00 mouth in [place] 00 :00 the Medical morning. Branch atorvastati 2021-0 Yes [id number] 20mg Take 1 Univers n 20 mg 8-26 tablet by ity of tablet 00:00: mouth at [place] 00 bedtime. Medical Branch atorvastati 2021-0 Yes [id number] 20mg Take 1 Univers n 20 mg 8-26 tablet by ity of tablet 00:00: mouth at [place] 00 bedtime. Medical Branch atorvasta 2021-0 Yes [id number] 20mg Take 1 Univers n 20 mg 8-26 tablet by ity of tablet 00:00: mouth at [place] 00 bedtime. Medical Branch atorvastati 2021-0 Yes [id number] 20mg Take 1 Univers n 20 mg 8-26 tablet by ity of tablet 00:00: mouth at [place] 00 bedtime. Medical Branch atorvasta 2021-0 Yes [id number] 20mg Take 1 Univers n 20 mg 8-26 tablet by ity of tablet 00:00: mouth at [place] 00 bedtime. Medical Branch atorvasta 2021-0 Yes [id number] 20mg Take 1 Univers n 20 mg 8-26 tablet by ity of tablet 00:00: mouth at [place] [address] bedtime. Medical Branch atorvasta 2021-0 Yes [id number] 20mg Take 1 Univers n 20 mg 8-26 tablet by ity of tablet 00:00: mouth at [place] [address] bedtime. Medical Branch atorvasta 2021-0 Yes [id number] 20mg Take 1 Univers n 20 mg 8-26 tablet by ity of tablet 00:00: mouth at [place] [address] bedtime. Medical Branch atorvastati 2021-0 Yes [id number] 20mg Take 1 Univers n 20 mg 8-26 tablet by ity of tablet 00:00: mouth at [place] [address] bedtime. Medical Branch atorvastati 2021-0 Yes [id number] 20mg Take 1 Univers n 20 mg 8-26 tablet by ity of tablet 00:00: mouth at [place] 00 bedtime. Medical Branch atorvastati 2021-0 Yes [id number] 20mg Take 1 Univers n 20 mg 8-26 tablet by ity of tablet 00:00: mouth at [place] [address] bedtime. Medical Branch atorvastati 2021-0 Yes [id number] 20mg Take 1 Univers n 20 mg 8-26 tablet by ity of tablet 00:00: mouth at [place] [address] bedtime. Medical Branch atorvastati 2021-0 Yes [id number] 20mg Take 1 Univers n 20 mg 8-26 tablet by ity of tablet 00:00: mouth at [place] [address] bedtime. Medical Branch atorvastati 2021-0 Yes [id number] 20mg Take 1 Univers n 20 mg 8-26 tablet by ity of tablet 00:00: mouth at [place] [address] bedtime. Medical Branch atorvastati 2021-0 Yes [id number] 20mg Take 1 Univers n 20 mg 8-26 tablet by ity of tablet 00:00: mouth at [place] [address] bedtime. Medical Branch atorvastati 2021-0 Yes [id number] 20mg Take 1 Univers n 20 mg 8-26 tablet by ity of tablet 00:00: mouth at [place] [address] bedtime. Medical Branch atorvasta 0 Yes [id number] 20mg Take 1 Univers n 20 mg 8-26 tablet by ity of tablet 00:00: mouth at [place] [address] bedtime. Medical Branch atorvastati 2021-0 Yes [id number] 20mg Take 1 Univers n 20 mg 8-26 tablet by ity of tablet 00:00: mouth at [place] [address] bedtime. Medical Branch atorvastati 0 Yes [id number] 20mg Take 1 Univers n 20 mg 8-26 tablet by ity of tablet 00:00: mouth at [place] [address] bedtime. Medical Branch atorvastati Yes [id number] 20mg Take 1 Univers n 20 mg 8-26 tablet by ity of tablet 00:00: mouth at [place] [address] bedtime. Medical Branch atorvastati 2021-0 Yes [id number] 20mg Take 1 Univers n 20 mg 8-26 tablet by ity of tablet 00:00: mouth at [place] [address] bedtime. Medical Branch atorvastati 2021-0 Yes [id number] 20mg Take 1 Univers n 20 mg 8-26 tablet by ity of tablet 00:00: mouth at [place] [address] bedtime. Medical Branch atorvastati 2021-0 Yes [id number] 20mg Take 1 Univers n 20 mg 8-26 tablet by ity of tablet 00:00: mouth at [place] [address] bedtime. Medical Branch atorvastati 2021-0 Yes [id number] 20mg Take 1 Univers n 20 mg 8-26 tablet by ity of tablet 00:00: mouth at [place] [address] bedtime. Medical Branch atorvastati 2021-0 Yes [id number] 20mg Take 1 Univers n 20 mg 8-26 tablet by ity of tablet 00:00: mouth at [place] [address] bedtime. Medical Branch atorvastati 2021-0 Yes [id number] 20mg Take 1 Univers n 20 mg 8-26 tablet by ity of tablet 00:00: mouth at [place] [address] bedtime. Medical Branch atorvastati 2021-0 Yes [id number] 20mg Take 1 Univers n 20 mg 8-26 tablet by ity of tablet 00:00: mouth at [place] [address] bedtime. Medical Branch atorvastati 2021-0 Yes [id number] 20mg Take 1 [facility] n 20 mg 8-26 tablet by ity of tablet 00:00: mouth at [place] [address] bedtime. Medical Branch atorvastati 0 Yes [id number] 20mg Take 1 [facility] n 20 mg 8-26 tablet by ity of tablet 00:00: mouth at [place] [address] bedtime. Medical Branch atorvastati 0 Yes [id number] 20mg Take 1 [facility] n 20 mg 8-26 tablet by ity of tablet 00:00: mouth at [place] [address] bedtime. Medical Branch atorvastati 0 Yes [id number] 20mg Take 1 [facility] n 20 mg 8-26 tablet by ity of tablet 00:00: mouth at [place] [address] bedtime. Medical Branch atorvastati Yes [id number] 20mg Take 1 [facility] n 20 mg 8-26 tablet by ity of tablet 00:00: mouth at [place] [address] bedtime. Medical Branch atorvastati 2021-0 Yes [id number] 20mg Take 1 [facility] n 20 mg 8-26 tablet by ity of tablet 00:00: mouth at [place] [address] bedtime. Medical Branch atorvastati 2021-0 Yes [id number] 20mg Take 1 [facility] n 20 mg 8-26 tablet by ity of tablet 00:00: mouth at [place] [address] bedtime. Medical Branch atorvastati 0 Yes [id number] 20mg Take 1 [facility] n 20 mg 8-26 tablet by ity of tablet 00:00: mouth at [place] [address] bedtime. Medical Branch atorvastati 2021-0 Yes [id number] 20mg Take 1 [facility] n 20 mg 8-26 tablet by ity of tablet 00:00: mouth at [place] bedtime. Medical Branch atorvastati 2021-0 Yes [id number] 20mg Take 1 [facility] n 20 mg 8-26 tablet by ity of tablet 00:00: mouth at [place] bedtime. Medical Branch atorvastati 0 Yes [id number] 20mg Take 1 [facility] n 20 mg 8-26 tablet by ity of tablet 00:00: mouth at [place] bedtime. Medical Branch atorvastati 2021-0 Yes [id number] 20mg Take 1 [facility] n 20 mg 8-26 tablet by ity of tablet 00:00: mouth at [place] bedtime. Medical Branch atorvastati 2021-0 Yes [id number] 20mg Take 1 [facility] n 20 mg 8-26 tablet by ity of tablet 00:00: mouth at [place] bedtime. Medical Branch atorvastati 0 Yes [id number] 20mg Take 1 [facility] n 20 mg 8-26 tablet by ity of tablet 00:00: mouth at [place] [address] bedtime. Medical Branch atorvastati 0 Yes [id number] 20mg Take 1 [facility] n 20 mg 8-26 tablet by ity of tablet 00:00: mouth at [place] [address] bedtime. Medical Branch atorvastati 0 Yes [id number] 20mg Take 1 [facility] n 20 mg 8-26 tablet by ity of tablet 00:00: mouth at [place] [address] bedtime. Medical Branch atorvastati Yes [id number] 20mg Take 1 [facility] n 20 mg 8-26 tablet by ity of tablet 00:00: mouth at [place] [address] bedtime. Medical Branch atorvastati 2021-0 Yes [id number] 20mg Take 1 [facility] n 20 mg 8-26 tablet by ity of tablet 00:00: mouth at [place] [address] bedtime. Medical Branch atorvastati 2021-0 Yes [id number] 20mg Take 1 [facility] n 20 mg 8-26 tablet by ity of tablet 00:00: mouth at [place] [address] bedtime. Medical Branch atorvastati 0 Yes [id number] 20mg Take 1 [facility] n 20 mg 8-26 tablet by ity of tablet 00:00: mouth at [place] [address] bedtime. Medical Branch atorvastati 2021-0 Yes [id number] 20mg Take 1 [facility] n 20 mg 8-26 tablet by ity of tablet 00:00: mouth at 00 bedtime. Medical Branch ALPRAZolam 2-0 Yes [id number] .5mg Take 1 [facility] 0.5 mg 8-22 tablet by ity of tablet 00:00: mouth 2 (two) Medical times Branch daily as needed (anxiety). cefpodoxime 2-0 Yes Univer s 200 mg 8-22 ity of tablet 00:00: 00 Medical Branch ALPRAZolam 2-0 Yes [id number] .5mg Take 1 Univers 0.5 mg 8-22 tablet by ity of tablet 00:00: mouth 2 (two) Medical times Branch daily as needed (anxiety). cefpodoxime 2-0 Yes Univer s 200 mg 8-22 ity of tablet 00:00: 00 Medical Branch ALPRAZolam 2-0 Yes [id number] .5mg Take 1 [facility] 0.5 mg 8-22 tablet by ity of tablet 00:00: mouth 2 (two) Medical times Branch daily as needed (anxiety). cefpodoxime 2-0 Yes Univer s 200 mg 8-22 ity of tablet 00:00: Medical Branch ALPRAZolam 2-0 Yes [id number] .5mg Take 1 [facility] 0.5 mg 8-22 tablet by ity of tablet 00:00: mouth 2 (two) Medical times Branch daily as needed (anxiety). cefpodoxime 2-0 Yes Univer s 200 mg 8-22 ity of tablet 00:00: Medical Branch ALPRAZolam 2-0 Yes [id number] .5mg Take 1 [facility] 0.5 mg 8-22 tablet by ity of tablet 00:00: mouth 2 (two) Medical times Branch daily as needed (anxiety). ALPRAZolam 2022-0 Yes [id number] .5mg Take 1 [facility] 0.5 mg 8-22 tablet by ity of tablet 00:00: mouth 2 (two) Medical times Branch daily as needed (anxiety). ALPRAZolam 2022-0 Yes [id number] .5mg Take 1 Univers 0.5 mg 8-22 tablet by ity of tablet 00:00: mouth 2 [place] 00 (two) Medical times Branch daily as needed (anxiety). ALPRAZolam 2021-0 Yes [id number] .5mg Take 1 [facility] 0.5 mg 8-22 tablet by ity of tablet 00:00: mouth 2 [place] 00 (two) Medical times Branch daily as needed (anxiety). ALPRAZolam 2021-0 2- No [id number] .5mg Take 1 [facility] 0.5 mg 8-22 12-08 tablet by ity of tablet 00:00: 00:00 mouth 2 [place] 00 :00 (two) Medical times Branch daily as needed (anxiety). ALPRAZolam 2021-0 2- No [id number] .5mg Take 1 Univers 0.5 mg 8-22 12-08 tablet by ity of tablet 00:00: 00:00 mouth 2 [place] 00 :00 (two) Medical times Branch daily as needed (anxiety). ALPRAZolam 2021-0 2022- No [id number] .5mg Take 1 [facility] 0.5 mg 8-22 12-08 tablet by ity of tablet 00:00: 00:00 mouth 2 [place] 00 :00 (two) Medical times Branch daily as needed (anxiety). ALPRAZolam 2021-0 2- No [id number] .5mg Take 1 [facility] 0.5 mg 8-22 12-08 tablet by ity of tablet 00:00: 00:00 mouth 2 [place] 00 :00 (two) Medical times Branch daily as needed (anxiety). cefpodoxime 2021-0 2022- No Unive rs 200 mg 8-22 11-09 ity of tablet 00:00: 00:00 [place] 00 :00 Medical Branch cefpodoxime 2021-0 2- No Unive rs 200 mg 8-22 - ity of tablet 00:00: 00:00 [place] 00 :00 Medical Branch cefpodoxime 2-0 2022- No Unive rs 200 mg 8-22 11-09 ity of tablet 00:00: 00:00 [place] 00 :00 Medical Branch cefpodoxime 2021-0 2022- No Unive rs 200 mg 8-22 11-09 ity of tablet 00:00: 00:00 [place] 00 :00 Medical Branch SERTraline 2021-0 Yes [id number] 50mg Take 1 [facility] 50 mg 7-20 tablet by ity of tablet 00:00: mouth in [place] 00 the morning. Branch SERTraline 2022-0 Yes [id number] 50mg Take 1 [facility] 50 mg 7-20 tablet by ity of tablet 00:00: mouth in [place] 00 the morning. Branch Immunizations Ordered Filled Immunization Date Status Comments [facility] e Immunization Name Name TD, NOS 2007-10-26 Completed University of 00:00:00 [facility] [place] [facility] TD, NOS 2007-10-26 Completed University of 00:00:00 [facility] [place] [facility] TD, NOS 2007-10-26 Completed University of 00:00:00 [facility] [place] [facility] Td 2007-10-26 Completed University of 00:00:00 [facility] [place] [facility] Td 2007-10-26 Completed University of 00:00:00 [facility] [place] [facility] Td 2007-10-26 Completed University of 00:00:00 [facility] [place] [facility] Td 2007-10-26 Completed University of 00:00:00 [facility] [place] [facility] Td 2007-10-26 Completed University of 00:00:00 [facility] [place] [facility] Td 2007-10-26 Completed University of 00:00:00 [facility] [place] [facility] Td 2007-10-26 Completed University of 00:00:00 [facility] [place] [facility] Td 2007-10-26 Completed University of 00:00:00 [facility] [place] [facility] Td 2007-10-26 Completed University of 00:00:00 [facility] [place] [facility] Td 2007-10-26 Completed University of 00:00:00 [facility] [place] [facility] Td 2007-10-26 Completed University of 00:00:00 [facility] [place] [facility] Td 2007-10-26 Completed University of 00:00:00 [facility] [place] [facility] TD, NOS 2007-10-26 Completed [facility] of 00:00:00 [facility] [place] [facility] TD, NOS 2007-10-26 Completed [facility] of 00:00:00 [facility] [place] [facility] TD, NOS 2007-10-26 Completed University of 00:00:00 [facility] [place] [facility] TD, NOS 2007-10-26 Completed University of 00:00:00 [facility] [place] [facility] TD, NOS 2007-10-26 Completed University of 00:00:00 [facility] [place] [facility] TD, NOS 2007-10-26 Completed University of 00:00:00 [facility] TD, NOS 2007-10-26 Completed University of 00:00:00 [facility] TD, NOS 2007-10-26 Completed University of 00:00:00 [facility] TD, NOS 2007-10-26 Completed [facility] of 00:00:00 [place] [facility] TD, NOS 2007-10-26 Completed [facility] of 00:00:00 [place] [facility] TD, NOS 2007-10-26 Completed [facility] of 00:00:00 [place] [facility] TD, NOS 2007-10-26 Completed [facility] of 00:00:00 [place] [facility] TD, NOS 2007-10-26 Completed [facility] of 00:00:00 [place] [facility] TD, NOS 2007-10-26 Completed [facility] of 00:00:00 [place] [facility] TD, NOS 2007-10-26 Completed [facility] of 00:00:00 [place] [facility] TD, NOS 2007-10-26 Completed [facility] of 00:00:00 [place] [facility] TD, NOS 2007-10-26 Completed [facility] of 00:00:00 [place] [facility] TD, NOS 2007-10-26 Completed [facility] of 00:00:00 [place] [facility] TD, NOS 2007-10-26 Completed [facility] of 00:00:00 [place] [facility] TD, NOS 2007-10-26 Completed [facility] of 00:00:00 [place] [facility] TD, NOS 2007-10-26 Completed [facility] of 00:00:00 [place] [facility] TD, NOS 2007-10-26 Completed [facility] of 00:00:00 [place] [facility] TD, NOS 2007-10-26 Completed [facility] of 00:00:00 [place] [facility] TD, NOS 2007-10-26 Completed [facility] of 00:00:00 [place] [facility] TD, NOS 2007-10-26 Completed [facility] of 00:00:00 [place] [facility] TD, NOS 2007-10-26 Completed [facility] of 00:00:00 [place] [facility] TD, NOS 2007-10-26 Completed [facility] of 00:00:00 [place] [facility] TD, NOS 2007-10-26 Completed [facility] of 00:00:00 [place] [facility] TD, NOS 2007-10-26 Completed [facility] of 00:00:00 [place] [facility] TD, NOS 2007-10-26 Completed [facility] of 00:00:00 [place] [facility] TD, NOS 2007-10-26 Completed [facility] of 00:00:00 [place] [facility] TD, NOS 2007-10-26 Completed [facility] of 00:00:00 [place] [facility] TD, NOS 2007-10-26 Completed University of 00:00:00 [facility] Vital Signs Vital Name Observation Time Observation Value Comments Source Body temperature 2022-10-20 23:15:00 37.72 Marsha Univ ersity of [facility] [place] [facility] Heart rate 2022-10-20 23:03:00 91 /min [facility] [place] [facility] Respiratory rate 2022-10-20 23:03:00 26 /min [facility] ersity of [facility] Branch Oxygen saturation in 2022-10-20 23:03:00 95 /min University of Arterial blood by [facility] Pulse oximetry Branch Systolic blood 2022-10-20 23:00:00 121 mm[Hg] Univer sity of pressure [place] [facility] Diastolic blood 2022-10-20 23:00:00 77 mm[Hg] Unive rsity of pressure [place] [facility] Body weight 2022-10-20 20:19:00 106.142 kg [facility] [place] [facility] BMI 2022-10-20 20:19:00 31.74 kg/m2 [facility] [place] [facility] Systolic blood 2022-10-03 20:26:00 125 mm[Hg] Univer sity of pressure [place] [facility] Diastolic blood 2022-10-03 20:26:00 84 mm[Hg] Unive rsity of pressure [place] [facility] Heart rate 2022-10-03 20:26:00 79 /min [facility] [place] [facility] Body temperature 2022-10-03 20:26:00 36.94 Marsha [facility] [place] [facility] Body height 2022-10-03 20:26:00 182.9 cm [facility] [place] [facility] Body weight 2022-10-03 20:26:00 106.142 kg [facility] [place] [facility] BMI 2022-10-03 20:26:00 31.74 kg/m2 [facility] [place] [facility] Systolic blood 2022-10-01 04:28:00 138 mm[Hg] Univer sity of pressure [place] [facility] Diastolic blood 2022-10-01 04:28:00 89 mm[Hg] Unive rsity of pressure [place] [facility] Heart rate 2022-10-01 04:28:00 72 /min [facility] [place] [facility] Body temperature 2022-10-01 04:28:00 36.78 Marsha [facility] [place] [facility] Respiratory rate 2022-10-01 04:28:00 18 /min [facility] [place] [facility] Body height 2022-10-01 04:28:00 182.9 cm [facility] [place] [facility] Body weight 2022-10-01 04:28:00 105.235 kg [facility] [place] [facility] BMI 2022-10-01 04:28:00 31.46 kg/m2 [facility] [place] [facility] Oxygen saturation in 2022-10-01 04:28:00 100 /min University of Arterial blood by [place] [employer] noemi Pulse oximetry Branch Body height 2022-09-14 19:14:00 182.9 cm [facility] [place] [facility] Body weight 2022-09-14 19:14:00 107.094 kg [facility] [place] [facility] BMI 2022-09-14 19:14:00 32.02 kg/m2 [facility] [place] [facility] Body height 2022-08-25 14:23:00 182.9 cm [facility] [place] [facility] Body weight 2022-08-25 14:23:00 106.142 kg [facility] [place] [facility] BMI 2022-08-25 14:23:00 31.74 kg/m2 [facility] [place] [facility] Body height 2022-07-27 21:16:00 182.9 cm [facility] [place] [facility] Body weight 2022-07-27 21:16:00 103.874 kg [facility] [place] [facility] BMI 2022-07-27 21:16:00 31.06 kg/m2 [facility] [place] [facility] Systolic blood 2022-07-19 05:47:52 126 mm[Hg] [facility]ity of [facility] Diastolic blood 2022-07-19 05:47:52 77 mm[Hg] Unive rsity of [facility] [place] [facility] Heart rate 2022-07-19 05:47:52 84 /min [facility] [place] [facility] Respiratory rate 2022-07-19 05:47:52 20 /min Univ ersity of [facility] Oxygen saturation in 2022-07-19 05:47:52 100 /min University of Arterial blood by [place] [employer] noemi Pulse oximetry Branch Body temperature 2022-07-19 03:56:00 37.11 Marsha [facility] [place] [facility] Body height 2022-07-19 03:56:00 182.9 cm [facility] [place] [facility] Body weight 2022-07-19 03:56:00 103.874 kg [facility] [place] [facility] BMI 2022-07-19 03:56:00 31.06 kg/m2 [facility] [place] [facility] Systolic blood 2022-05-25 15:42:00 141 mm[Hg] Univer sity of pressure [place] [facility] Diastolic blood 2022-05-25 15:42:00 102 mm[Hg] Unive rsity of pressure [place] [facility] Heart rate 2022-05-25 15:41:00 70 /min [facility] [place] [facility] Body height 2022-05-25 15:41:00 182.9 cm [facility] [place] [facility] Body weight 2022-05-25 15:41:00 108.863 kg [facility] [place] [facility] BMI 2022-05-25 15:41:00 32.55 kg/m2 [facility] [place] [facility] Systolic blood 2022-03-11 15:09:00 123 mm[Hg] Univer sity of pressure [place] [facility] Diastolic blood 2022-03-11 15:09:00 85 mm[Hg] Unive rsity of [facility] [place] [facility] Heart rate 2022-03-11 15:09:00 76 /min [facility] [place] [facility] Body temperature 2022-03-11 15:09:00 36.89 Marsha [facility] [place] [facility] Body height 2022-03-11 15:09:00 185.4 cm [facility] [place] [facility] Body weight 2022-03-11 15:09:00 113.399 kg [facility] [place] [facility] BMI 2022-03-11 15:09:00 32.98 kg/m2 [facility] [place] [facility] Body height 2022-09-14 19:14:00 182.9 cm [facility] [place] [facility] Body weight 2022-09-14 19:14:00 107.094 kg [facility] [place] [facility] BMI 2022-09-14 19:14:00 32.02 kg/m2 [facility] [place] [facility] Respiratory rate 2022-08-18 15:41:00 18 /min Univ ers[facility] [place] [facility] Body height 2022-08-18 15:41:00 182.9 cm [facility] [place] [facility] Body weight 2022-08-18 15:41:00 106.232 kg [facility] [place] [facility] BMI 2022-08-18 15:41:00 31.76 kg/m2 [facility] [place] [facility] Body height 2022-07-27 21:16:00 182.9 cm [facility] [place] [facility] Body weight 2022-07-27 21:16:00 103.874 kg [facility] [place] [facility] BMI 2022-07-27 21:16:00 31.06 kg/m2 [facility] [place] [facility] Systolic blood 2022-07-19 05:47:52 126 mm[Hg] Univer sity of pressure [place] [facility] Diastolic blood 2022-07-19 05:47:52 77 mm[Hg] Unive rsity of pressure [place] [facility] Heart rate 2022-07-19 05:47:52 84 /min [facility] [place] [facility] Respiratory rate 2022-07-19 05:47:52 20 /min Univ ers[facility] [place] [facility] Oxygen saturation in 2022-07-19 05:47:52 100 /min University of Arterial blood by [employer] Pulse oximetry Branch Body temperature 2022-07-19 03:56:00 37.11 Marsha [facility] [place] [facility] Systolic blood 2022-06-23 17:56:00 122 mm[Hg] Univer sity of [facility] [place] [facility] Diastolic blood 2022-06-23 17:56:00 74 mm[Hg] Unive rsity of pressure [place] [facility] Heart rate 2022-06-23 17:56:00 71 /min [facility] [place] [facility] Respiratory rate 2022-06-23 17:56:00 18 /min [facility] [place] [facility] Body height 2022-06-23 17:56:00 182.9 cm [facility] [place] [facility] Body weight 2022-06-23 17:56:00 106.958 kg [facility] [place] [facility] BMI 2022-06-23 17:56:00 31.98 kg/m2 [facility] [place] [facility] Body temperature 2022-03-11 15:09:00 36.89 Marsha [facility] [place] [facility] Oxygen saturation in 2020-11-27 17:09:00 95 /min University of Arterial blood by [employer] Pulse oximetry Branch Procedures Procedure Date / Time Performing Clinician Source Performed CT CHEST PULMONARY 2022-10-20 21:53:03 Jagruti Craig [facility] ANGIOGRAM Medical Branch TROPONIN I 2022-10-20 21:36:[address] [facility] COMP. METABOLIC PANEL 2022-10-20 21:36:00 Jagruti Craig [facility] ([id number]) Medical Branch CBC WITH DIFF 2022-10-20 21:36:[address] [facility] XR CHEST 1 VW 2022-10-20 20:49:[address] [facility] CONSENT/REFUSAL FOR 2022-10-20 20:16:17 Doctor Unahipolito [facility] DIAGNOSIS AND TREATMENT [facility] RAPID STREP SCREEN FOR 2022-10-01 04:37:00 Amber Amado [facility] GROUP A Medical Branch RAPID INFLUENZA A/B 2022-10-01 04:37:00 Amber Amado [facility] Medical Branch COVID-19 (ID NOW RAPID 2022-10-01 04:37:00 Amber Amado [facility] TESTING) Medical Branch CONSENT/REFUSAL FOR 2022-10-01 04:21:50 Doctor Rachael [facility] DIAGNOSIS AND TREATMENT [facility] DISABILITY/FMLA 2022-09-23 06:01:00 Doctor Rachael [facility] DISABILITY/FMLA 2022-09-23 06:01:00 Doctor Rachael [facility] Name Medical Branch DSU PRE-OP 2022-08-31 06:01:00 Doctor Unahipolito [facility] DSU PRE-OP 2022-08-31 06:01:00 Doctor Unahipolito [facility] EKG-12 LEAD 2022-08-29 19:28:24 Doctor Rachael [facility] XR CHEST 1 VW 2022-08-29 18:36:18 Burak [facility] COMP. METABOLIC PANEL 2022-08-29 18:02:00 Fausto Barrios [facility] ([id number]) Medical Branch VALPROIC ACID, FREE 2022-08-29 18:02:[address] [facility] CBC WITH DIFF 2022-08-29 18:02:00 Burak [facility] VALPROIC ACID, FREE 2022-08-29 18:02:[address] [facility] COMP. METABOLIC PANEL 2022-08-29 18:02:00 Fausto Barrios [facility] ([id number]) Medical Branch CBC WITH DIFF 2022-08-29 18:02:00 Burak [facility] EKG (SCANNED DOCUMENTS) 2022-08-29 06:01:00 Doctor Unassigned, [facility] Name Medical Branch REFERRAL- 2022-08-25 06:01:00 Doctor Rachael, [facility] REQUEST/RESPONSE [facility] DISABILITY/FMLA 2022-08-22 06:01:00 Doctor Unassmar, [facility] Name [facility] [place] RADIOLOGY DOCUMENTATION 2022-08-22 06:01:00 Doctor Rachael, [facility] Name Medical Branch DISABILITY/FMLA 2022-08-22 06:01:00 Doctor Unahipolito, [facility] Name [facility] XR FEMUR 2 VW LEFT 2022-07-19 04:42:00 Amanda Mc[facility]innis [facility] [facility] XR KNEE 4+ VW LEFT 2022-07-19 04:42:[address] [facility] XR TIBIA FIBULA 2 VW LEFT 2022-07-19 04:42:00 Amanda Mcginnis [facility] XR KNEE 4+ VW LEFT 2022-07-19 04:42:00 Amanda Mcginnis [facility] Medical [facility] XR FEMUR 2 VW LEFT 2022-07-19 04:42:[address] [facility] XR TIBIA FIBULA 2 VW LEFT 2022-07-19 04:42:00 Amanda Mcginnis [facility] NOTICE OF PRIVACY 2022-07-19 03:37:43 Doctor Unassigned, [facility] [place] [facility] NOTICE OF PRIVACY 2022-07-19 03:37:43 Doctor Rachael, [facility] Name Medical Branch CONSENT/REFUSAL FOR 2022-07-19 03:37:24 Doctor Rachael [facility] DIAGNOSIS AND TREATMENT [place] CONSENT/REFUSAL FOR 2022-07-19 03:37:24 Doctor Rachael [facility] DIAGNOSIS AND TREATMENT [facility] EMERGENCY SERVICES 2022-07-18 06:01:00 Doctor Rachael [facility] AGREEMENTS AND [place] [facility] AUTHORIZATIONS COMP. METABOLIC PANEL 2022-06-23 21:14:00 Fausto Barrios [facility] ([id number]) Medical Branch VALPROIC ACID, FREE 2022-06-23 21:14:00 Fausto Barrios [facility] [place] EXTERNAL PROVIDER RECORDS 2022-04-28 05:01:00 Doctor Rachael, [facility] EXTERNAL PROVIDER RECORDS 2022-04-28 05:01:00 Doctor Rachael, [facility] Name Medical [place] EXTERNAL PROVIDER RECORDS 2022-04-04 05:01:00 Doctor Rachael, [facility] Name Medical [place] EXTERNAL PROVIDER RECORDS 2022-04-04 05:01:00 Doctor Rachael, [facility] Name Medical [place] BASIC METABOLIC PANEL 2022-03-11 15:41:00 Dino Lopez [facility] (NA, K, CL, CO2, GLUCOSE, [place] Medica l Branch BUN, CREATININE, CA) LIPID PANEL ([id number])(TOTAL 2022-03-11 15:41:00 Dino Lopez [facility] CHOLESTEROL, [facility] [place] TRIGLYCERIDES, HDL) Encounters Start End Encounter Admission Attending Care Care Encounter Source Date/Time Date/Time Type Type Clinicians Facility Department ID 2021-05-16 Emergency [facility] [id number] Univers 18:29:19 [facility] 2022-10-20 2022-10-20 Emergency [facility] [id number] Univers 15:27:00 18:35:00 JAGRUTI [facility] 2022-10-20 2022-10-20 Emergency [facility] 1.2.515.815 [id number] Univers 15:27:00 18:35:00 Jagruti GUZMAN 350.1.13.10 i candie ERAZO 4.2.7.2.686 [facility] [phone] [address] 2022-10-06 2022-10-06 Outpatient R ANNETTEHADLEY MELARA [facility] [id number] Univers 09:15:00 09:15:00 ity of [facility] [place] [facility] 2022-10-03 2022-10-03 Office [facility] 1.2.840.114 [id number] Univers 16:00:00 16:15:00 Visit Dino [facility] 350.1.13.10 it y of Noahhebert THOMAS 4.2.7.2.686 [place] as SAM?BLEA [phone] Nv eber FLORES [address] [place] [address] OFFICE BUILDING 2022-10-03 2022-10-03 [facility] [id number] Univers 16:00:00 16:00:00 DINO [facility] 2022-09-30 2022-10-01 Emergency X [facility] ERT [id number] Univers 23:35:00 00:27:00 [facility] 2022-09-30 2022-10-01 Emergency [facility] 1.2.269.396 [id number] Univers 23:35:00 00:27:00 Amber GUZMAN 350.1.13.10 i ty of [place] 4.2.7.2.686 [facility] [phone] [address] 2022-09-23 2022-09-23 Orders Doctor 1.2.840.8 [id number] Univers 00:00:00 00:00:00 Only Unassigned, 46782.1.1 ity of [place] 3.104.2.7 [place] .3.739504 Medica l .8 [place] 2022-09-14 2022-09-14 Office Collette 1.2.840.5 [id number] Univers 14:00:00 14:00:00 Visit [place] 72921.1.1 ity of 3.104.2.7 [place] .3.483108 Medica l .8 [place] 2022-09-14 2022-09-14 Outpatient [facility] [id number] Univers 14:00:00 13:32:22 BURAK ity of [facility] [place] [facility] 2022-09-14 2022-09-14 Travel 1.2.840.1 1.2.111.600 [id number] [id number] Univers 00:00:00 00:00:00 92088.1.1 350.1.13.10 ity of 3.104.2.7 4.[place].7.3.698 [place] .3.652105 084.8 Medica l .8 Branch 2022-09-12 2022-09-12 Travel 1.2.840.1 1.2.196.741 [id number] Univers 00:00:00 00:00:00 37268.1.1 350.1.13.10 ity of 3.104.2.7 4.2.7.3.698 [place] .3.414334 084.8 Medica l .8 Branch 2022-08-31 2022-08-31 [facility] [place], 1.2.840.2 [id number] Univers 00:00:00 00:00:00 Burak L 25839.1.1 ity of 3.104.2.7 [place] .3.718816 Medica l .8 Branch 2022-08-31 2022-08-31 Orders Doctor 1.2.840.4 [id number] Univers 00:00:00 00:00:00 Only Unassigned, 64344.1.1 ity of [place] 3.104.2.7 [place] .3.420117 Medica l .8 Branch 2022-08-29 2022-08-29 [facility] 1.2.840.5 [id number] Univers 12:30:00 23:59:00 Encounter [place] 89236.1.1 it y of 3.104.2.7 [place] .3.101000 Medica l .8 [place] 2022-08-29 2022-08-29 [facility] 1.2.840.8 [id number] Univers 12:27:47 12:29:00 Encounter Burak L 75073.1.1 it y of 3.104.2.7 [place] .3.871488 Medica l .8 [place] 2022-08-29 2022-08-29 Outpatient R COLLETTE [facility] [id number] Univers 12:00:00 12:10:12 BURAK henley [facility] 2022-08-29 2022-08-29 Gore Inserter Unknown, Attending 1.2.840.1 10 [id number] Univers 12:00:00 12:10:12 Visit Burak Murdock 33559.1.1 ity of Lab, Ang - Db 3.104.2.7 [place] .3.210241 Medica l .8 [place] 2022-08-29 2022-08-29 Telephone Collette, 1.2.840.6 [id number] 1 [id number] Univers 00:00:00 00:00:00 [place] 88632.1.1 ity of 3.104.2.7 [place] .3.656205 Medica l .8 [place] 2022-08-29 2022-08-29 Travel 1.2.840.1 1.2.709.835 [id number] [id number] Univers 00:00:00 00:00:00 74787.1.1 350.1.13.10 ity of 3.104.2.7 4.[place].7.3.698 [place] .3.963906 084.8 Medica l .8 [place] 2022-08-25 2022-08-25 Outpatient R COLLETTE [facility] [id number] Univers 08:45:00 10:02:43 BURAK henley [facility] 2022-08-25 2022-08-25 Office Collette 1.2.840.8 [id number] Univers 08:45:00 10:02:43 Visit [place] 70826.1.1 ity of 3.104.2.7 [place] .3.070953 Medica l .8 Matthews 2022-08-25 2022-08-25 Travel 1.2.840.1 1.2.210.710 7612 [id number] Univers 00:00:00 00:00:00 97660.1.1 350.1.13.10 ity of 3.104.2.7 4.2.7.3.698 [place] .3.507503 084.8 Medica l .8 [place] 2022-08-22 2022-08-22 Orders Doctor 1.2.840.1 [id number] Univers 00:00:00 00:00:00 Only Unassigned, 00328.1.1 ity of [place] 3.104.2.7 [place] .3.570640 Medica l .8 [place] 2022-08-22 2022-08-22 Telephone [place] 1.2.840.8 [id number] Univers 00:00:00 00:00:00 Burak L 28172.1.1 ity of 3.104.2.7 [place] .3.516016 Medica l .8 [place] 2022-08-18 2022-08-18 Outpatient R HADLEY BRYANT [facility] [id number] Univers 10:00:00 10:32:36 ity of [facility] [place] [facility] 2022-08-18 2022-08-18 Travel 1.2.840.1 1.2.672.422 [id number] Univers 00:00:00 00:00:00 11218.1.1 350.1.13.10 ity of 3.104.2.7 4.2.7.3.698 [place] .3.357215 084.8 Medica l .8 [place] 2022-08-11 2022-08-11 Patient Doctor 1.2.840.6 [id number] Univers 00:00:00 00:00:00 Secure Msg Unassigned, 73454.1.1 ity of [place] 3.104.2.7 [place] .3.668879 Medica l .8 [place] 2022-08-09 2022-08-09 Outpatient Elif MURDOCK, [facility] [id number] Univers 00:00:00 00:00:00 BURAK ity of [facility] [place] [facility] 2022-08-05 2022-08-05 Outpatient Elif LOPEZ [facility] [id number] Univers 08:00:00 08:00:00 DINO ity [facility] 2022-08-02 2022-08-02 Telephone [place], 1.2.840.6 [id number] Univers 00:00:00 00:00:00 [place] 64372.1.1 ity of 3.104.2.7 [place] .3.593697 Medica l .8 [place] 2022-07-28 2022-07-28 Outpatient HADLEY RIZZO [facility] [id number] Univers 10:00:00 10:00:00 ity of [facility] [place] [facility] 2022-07-28 2022-07-28 Telephone [place], 1.2.840.0 [id number] Univers 00:00:00 00:00:00 [place] 24639.1.1 ity of 3.104.2.7 [place] .3.247324 Medica l .8 [place] 2022-07-27 2022-07-27 Outpatient R COLLETTE, [facility] [id number] Univers 15:15:00 15:34:49 BURAK ity of [facility] [place] [facility] 2022-07-27 2022-07-27 Office Collette, 1.2.840.8 [id number] Univers 15:15:00 15:34:49 Visit [place] 56691.1.1 ity of 3.104.2.7 [place] .3.585763 Medica l .8 [place] 2022-07-27 2022-07-27 Telephone Jessica, 1.2.840.4 [id number] Univers 00:00:00 00:00:00 Dino 02478.1.1 ity of [place] 3.104.2.7 [place] .3.692208 Medica l .8 [place] 2022-07-27 2022-07-27 Telephone Jessica, 1.2.840.9 [id number] Univers 00:00:00 00:00:00 Dino 43430.1.1 ity of [place] 3.104.2.7 [place] .3.156852 Medica l .8 [place] 2022-07-27 2022-07-27 Travel 1.2.840.1 1.2.637.914 5006 [id number] Univers 00:00:00 00:00:00 95974.1.1 350.1.13.10 ity of 3.104.2.7 4.2.7.3.698 [place] .3.621189 084.8 Medica l .8 [place] 2022-07-18 2022-07-18 Emergency X RAS, [facility] ERT [id number] Univers 22:00:00 23:50:00 AMANDA ity of [facility] [place] [facility] 2022-07-18 2022-07-18 Emergency Mcginnis, 1.2.840.5 [id number] Univers 22:00:00 23:50:00 Amanda T 45752.1.1 it y of 3.104.2.7 [place] .3.728665 Medica l .8 [place] 2022-07-18 2022-07-18 Orders Doctor 1.2.840.5 [id number] Univers 00:00:00 00:00:00 Only Unassigned, 04129.1.1 ity of [place] 3.104.2.7 [place] .3.556342 Medica l .8 [place] 2022-07-18 2022-07-18 Travel 1.2.840.1 1.2.847.981 5076 3839 Univers 00:00:00 00:00:00 90561.1.1 350.1.13.10 ity of 3.104.2.7 4.2.7.3.698 [place] .3.179175 084.8 Medica l .8 [place] 2022-06-29 2022-06-29 Outpatient R JESSICA [facility] [id number] Univers 09:00:00 09:00:00 DINO ity of [facility] [place] [facility] 2022-06-23 2022-06-23 Gore Inserter Osmany Levine 1.2.840. 0 [id number] Univers 15:15:00 15:23:25 Visit Lab, Jordi - Jack 11564.1.1 ity of 3.104.2.7 [place] .3.490893 Medica l .8 [place] 2022-06-23 2022-06-23 Outpatient R JENNIFER [facility] [id number] Univers 12:45:00 13:59:56 OSMANY ity of [facility] [place] [facility] 2022-06-23 2022-06-23 Travel 1.2.840.1 1.2.996.975 8196 5969 Univers 00:00:00 00:00:00 14127.1.1 350.1.13.10 ity of 3.104.2.7 4.2.7.3.698 [place] .3.834915 084.8 Medica l .8 [place] 2022-05-25 2022-05-25 Outpatient Elif LOPEZ, [facility] [id number] Univers 09:45:00 10:13:38 DINO ity of [facility] [place] [facility] 2022-05-25 2022-05-25 Office Jessica, 1.2.840.0 [id number] 6138 Univers 09:45:00 10:13:38 Visit Dino 48172.1.1 ity of [place] 3.104.2.7 [place] .3.352237 Medica l .8 [place] 2022-05-25 2022-05-25 Travel 1.2.840.1 1.2.084.640 2500 8166 Univers 00:00:00 00:00:00 76104.1.1 350.1.13.10 ity of 3.104.2.7 4.2.7.3.698 [place] .3.646807 084.8 Medica l .8 [place] 2022-05-24 2022-05-24 Letter Jessica, 1.2.840.0 [id number] [id number] Univers 00:00:00 00:00:00 (Out) Dino 28287.1.1 ity of [place] 3.104.2.7 [place] .3.649912 Medica l .8 [place] 2022-04-28 2022-04-28 Orders Doctor 1.2.840.7 [id number] Univers 00:00:00 00:00:00 Only Unassigned, 52460.1.1 ity of [place] 3.104.2.7 [place] .3.571611 Medica l .8 [place] 2022-04-05 2022-04-05 Refill Jessica, 1.2.840.9 [id number] Univers 00:00:00 00:00:00 Dino 77127.1.1 ity of [place] 3.104.2.7 [place] .3.177622 Medica l .8 [place] 2022-04-04 2022-04-04 Orders Doctor 1.2.840.7 [id number] Univers 00:00:00 00:00:00 Only Unassigned, 57818.1.1 ity of [place] 3.104.2.7 [place] .3.968729 Medica l .8 [place] 2022-03-11 2022-03-11 Outpatient [facility] [id number] Univers 11:15:00 11:15:00 DINO [facility] 2022-03-11 2022-03-11 Gore Inserter Lab, Ang - [facility] 1.2.840.1 14 [id number] Univers 11:15:00 11:15:00 Visit Dino Lopez [facility] 350.1.13 .10 ity of [place] 4.2.7.2.686 [place] as SAM?BLEA [phone] Nv eber FLORES 353 [facility] OFFICE [facility] 2022-03-11 2022-03-11 Office [facility] 1.2.840.114 [id number] Univers 10:30:00 10:30:00 Visit [facility] 350.1.13.10 it y of [place] 4.2.7.2.686 [place] as SAM?BLEA [phone] Nv eber AHMADI 044 [facility] OFFICE [facility] 2022-03-11 2022-03-11 Outpatient R [facility] [id number] Univers 10:30:00 10:23:29 [facility] 2022-03-11 2022-03-11 Letter [facility] 1.2.840.114 [id number] Univers 00:00:00 00:00:00 (Out) [facility] 350.1.13.10 it y of [place] 4.2.7.2.686 [place] as SAM?BLEA [phone] Nv margarito[address] MEDICAL OFFICE BUILDING 2022-03-07 2022-03-07 Refill [facility] 1.2.840.114 [id number] Univers 00:00:00 00:00:00 [facility] 350.1.13.10 it y of [place] 4.2.7.2.686 [place] as SAM?BLEA [phone] [address] MEDICAL OFFICE [facility] 2022-02-02 2022-02-02 Office [facility] 1.2.840.114 [id number] Univers 10:15:00 10:30:00 Visit [facility] 350.1.13.10 it y of [place] 4.2.7.2.686 [place] as SAM?BLEA [phone] [address] OFFICE [facility] 2022-02-02 2022-02-02 [facility] [id number] Univers 10:15:00 10:15:00 DINO [facility] 2021-12-30 2021-12-30 Office [facility] 1.2.840.114 [id number] Univers 10:30:00 11:00:00 Visit [facility] 350.1.13.10 it y of [place] 4.2.7.2.686 [place] as SAM?BLEA [phone] [address] OFFICE [facility] 2021-12-30 2021-12-30 [facility] [id number] Univers 10:30:00 10:38:02 DINO [facility] 2021-12-30 2021-12-30 [facility] [id number] Univers 10:30:00 10:30:00 [facility] 2021-12-30 2021-12-30 Orders Doctor LEE ANN 1.2.840.114 [id number] Univers 00:00:00 00:00:00 Only Unassigned, CARROL 350.1.13.10 ity of [place] [facility] 4.2.7.2.686 [place] as [phone] [address] 2020-12-02 2020-12-02 Office [facility] 1.2.840.114 [id number] Univers 15:55:35 16:25:35 Visit [facility] 350.1.13.10 it y of Dante Guzman 4.2.7.2.686 [place] as Michelle [phone] Nv dical nal 0[address] Branch Office [facility] 2020-12-02 2020-12-02 Outpatient R JESSICA, [facility] [id number] Univers 16:00:00 16:00:00 DINO martin [facility] 2020-11-30 2020-11-30 Outpatient R COLLETTE, [facility] [id number] Univers 15:15:00 15:15:00 BURAK [facility] 2020-11-30 2020-11-30 Patient Juany Sood Meccakylah 1.2.840.114 [id number] Univers 00:00:00 00:00:00 Outreach Paramjit Patiño 350.1.13.10 i [place]2.7.2.[place] [phone] [facility] [address] [place] 2020-11-30 2020-11-30 Transition ChazparamjitAlexandre 1.2.840.114 [id number] Univers 00:00:00 00:00:00 of Care Windy Patiño 350.1.13.10 i [place]2.7.2.[place] [id number] [facility] 403 Branch 2020-11-24 2020-11-27 Hospital Leland Pedraza 1.2.840.11 4 [id number] Univers 15:38:00 14:15:00 Encounter Miguel Angel Figueredo 350.1.13. 10 ity of Colt Gomez [facility] 4.2.7 .2.686 [place] [id number] [facility] 095 Branch 2020-11-24 2020-11-24 Orders Doctor NANCE 1.2.840.114 [id number] Univers 00:00:00 00:00:00 Only Unassigned, CARROL 350.1.13.10 ity of [place] [facility] 4.2.7.2.686 [place] as [phone] [facility] 009 Branch 2019-12-24 2019-12-24 [facility] 1.2.840.114 [id number] Univers 00:00:00 00:00:00 [facility] 350.1.13.10 it y of [place] 4.2.7.2.686 [place] as Professio [phone] [address] Office [facility] 2019-12-24 2019-12-24 [facility] 1.2.840.114 [id number] 00:00:00 00:00:00 [facility] 350.1.13.10 [place] 4.2.7.2.686 Professio [phone] [place] [address] Office [facility] 2019-11-26 2019-11-26 [facility] 1.2.840.114 [id number] [facility] 00:00:00 00:00:00 [facility] 350.1.13.10 it y of [place] 4.2.7.2.686 [place] as Professio [phone] [address] 2019-11-26 2019-11-26 [facility] 1.2.840.114 [id number] 00:00:00 00:00:00 [facility] 350.1.13.10 [place] 4.2.7.2.686 Professio [id number] [address] 2019-11-19 2019-11-19 Outpatient R [facility] [id number] Univers 15:15:00 15:15:00 DINO ity of [facility] [place] [facility] 2019-11-19 2019-11-19 [facility] 1.2.840.114 [id number] Univers 07:41:48 07:56:48 ne Visit Dino Guzman 350.1.13.10 ity of [place] 4.2.7.2.[place] Profess[place] [phone] [address] 2019-11-19 2019-11-19 [facility] 1.2.840.114 [id number] 07:41:48 07:56:48 ne Visit Dino Guzman 350.1.13.10 [place] 4.2.7.2.686 Professio [phone] [address] 2019-03-20 2019-03-20 Office [facility] 1.2.840.114 [id number] 026 [facility] 13:25:29 14:22:12 Visit [facility] 350.1.13.10 it y of [place] 4.2.7.2.686 [place] as Professio [phone] [address] 2019-03-20 2019-03-20 Office [facility] 1.2.840.114 [id number] 13:25:29 14:22:12 Visit [facility] 350.1.13.10 [place] 4.2.7.2.686 Professio [phone] [address] 2019-03-20 2019-03-20 Orders Doctor LEE ANN 1.2.840.114 [id number] [facility] 00:00:00 00:00:00 Only Unassigned, CARROL 350.1.13.10 ity of [place] [facility] 4.2.7.2.686 [place] as [phone] [address] 2019-03-20 2019-03-20 Orders Doctor LEE ANN 1.2.840.114 [id number] 00:00:00 00:00:00 Only Unassigned, CARROL 350.1.13.10 [place] [facility] 4.2.7.2.686 [id number] [facility] 2019-03-19 2019-03-19 [facility] 1.2.840.114 [id number] [facility] 00:00:00 00:00:00 [facility] 350.1.13.10 it y of [place] 4.2.7.2.686 [place] as Professio [phone] [address] 2019-03-19 2019-03-19 [facility] 1.2.840.114 [id number] 00:00:00 00:00:00 [facility] 350.1.13.10 [place] 4.2.7.2.686 Professio [phone] [address] One Results Test Description Test Time Test Comments Results Result Comments Source TROPONIN I 2022-10-20 22:17:10 Test Item Value Reference Range Interpretation Comme nts TROPONIN I (test code = 6040410988) 0.001 ng/mL <=0.034 ANKIT (test code = ANKIT) Reference (Normal) Range (defined by the 99th percentile reference limit): <= 0.034 ng/mL Note: Cardiac troponin begins to rise 3-4 hours after the onset of ischemia. Repeat in 4-6 hours if the sample was drawn within 3-4 hours of the onset of the symptom and found normal. Diagnosis of myocardial injury is made with acute changes in cTn concentrations with at least one serial sample above the 99th percentile upper reference limit (URL), taken together with the patient's clinical presentation. Biotin has been reported to cause a negative bias, interpret results relative to patient's use of biotin. Lab Interpretation (test code = Normal 79844-0) [facility]. METABOLIC PANEL (34547)2022-10-20 22:05:28 Test Item Value Reference Range Interpretation Comments NA (test code = 141 mmol/L 135-145 9679086141) K (test code = 4.0 mmol/L 3.5-5.0 5293641708) CL (test code = 103 mmol/L 98-108 7074273105) CO2 TOTAL (test code 27 mmol/L 23-31 = 3726418132) AGAP (test code = 11 2-16 5109292887) BUN (test code = 15 mg/dL 7-23 1552001980) GLUCOSE (test code = 92 mg/dL 70-110 1391524616) CREATININE (test code 1.09 mg/dL 0.60-1.25 = 2051402817) TOTAL BILI (test code 0.6 mg/dL 0.1-1.1 = 1953153819) CALCIUM (test code = 9.2 mg/dL 8.6-10.6 1743570079) T PROTEIN (test code 7.8 g/dL 6.3-8.2 = 2244424550) ALBUMIN (test code = 4.2 g/dL 3.5-5.0 5521573407) ALK PHOS (test code = 86 U/L 34-122 6931021424) ALTv (test code = 29 U/L 5-50 1742-6) AST(SGOT) (test code 22 U/L 13-40 = 2876005291) eGFR (test code = 76.5 mL/min/1.73m2 3347692859) ANKIT (test code = ANKIT) Association of Glomerular Filtration Rate (GFR) and Staging of Kidney Disease* + + +- +| GFR (mL/min/1.73 m2) ?| With Kidney Damage ?| ?Without Kidney Damage+ ------+ ----+ ------+| ?>90 ?| ?Stage one ?| ? Normal ?+ -+ + -+| ?60-89 ?| ?Stage two ?| ? Decreased GFR ? + + +- +| ?30-59 ?| ?Stage three ?| ? Stage three ? + + +- +| ?15-29 ?| ?Stage four ? | ? Stage four ?+ -+ + -+| ?<15 (or dialysis) ? ?| ?Stage five ? | ? Stage five ?+ -+ + -+ *Each stage assumes the associated GFR level has been in effect for at least three months. ?Stages 1 to 5, with or without kidney disease, indicate chronic kidney disease. Notes: Determination of stages one and two (with eGFR >59mL/min/1.73 m2) requires estimation of kidney damage for at least three months as defined by structural or functional abnormalities of the kidney, manifested by either:Pathological abnormalities or Markers of kidney damage (including abnormalities in the composition of the blood or urine or abnormalities in imaging tests). [facility] WITH [id number] 21:53:49 Test Item Value Reference Range Interpretation Comments WBC (test code = 8.34 See_Comment [Automated 2967-2) message] The sy stem which generated this result transmitted reference range : 4.20 - 10.70 10*3/?L. The reference range was not used to interpret this result as normal/abnormal . RBC (test code = 4.64 See_Comment [Automated 958-1) message] The sy stem which generated this result transmitted reference range : 4.26 - 5.52 10*6/?L. The reference range was not used to interpret this result as normal/abnormal . HGB (test code = 13.3 g/dL 12.2-16.4 718-7) HCT (test code = 41.6 % 38.4-49.3 4544-3) MCV (test code = 89.7 fL 81.7-95.6 787-2) MCH (test code = 28.7 pg 26.1-32.7 785-6) MCHC (test code = 32.0 g/dL 31.2-35.0 786-4) RDW-SD (test code = 41.1 fL 38.5-51.6 49980-7) RDW-CV (test code = 12.6 % 12.1-15.4 788-0) PLT (test code = 352 See_Comment H [Automated 777-3) message] The sy stem which generated this result transmitted reference range : 150 - 328 10*3/ ?L. The reference r rocky was not used to interpret this result as normal/abnormal . MPV (test code = 9.1 fL 9.8-13.0 L 88252-3) NRBC/100 WBC (test 0.0 See_Comment [Automat ed code = [id number]) message] The system which generated this result transmitted reference range : 0.0 - 10.0 /100 WBCs. The refer ence range was not u sed to interpret th is result as normal/abnormal . NRBC x10^3 (test code See_Comment [Auto mated = [id number]) message] The s ystem which generated this result transmitted reference range : 10*3/?L. The reference range was not used to interpret this result as normal/abnormal . GRAN MAT (NEUT) % 66.9 % (test code = 770-8) IMM GRAN % (test code 0.20 % = [id number]) LYMPH % (test code = 19.3 % 736-9) MONO % (test code = 10.9 % 5905-5) EOS % (test code = 2.0 % 713-8) BASO % (test code = 0.7 % 706-2) GRAN MAT x10^3(ANC) 5.57 10*3/uL 1.99-6.95 (test code = [id number]) IMM GRAN x10^3 (test 0.00-0.06 code = [id number]) LYMPH x10^3 (test code 1.61 10*3/uL 1.09-3.23 = 731-0) MONO x10^3 (test code 0.91 10*3/uL 0.36-1.02 = 742-7) EOS x10^3 (test code = 0.17 10*3/uL 0.06-0.53 711-2) BASO x10^3 (test code 0.06 10*3/uL 0.01-0.09 = 704-7) Lab Interpretation Abnormal (test code = 57978-1) [id number]55[facility]16 Test Item Value Reference Range Interpretation Comments Valproic Acid, Free 3.7 ug/mL 4.0-15.0 L (test code = [id number]) ANKIT (test code = ANKIT) Toxic Range: ? Greater than 15 ug/mL Test developed and characteristics determined by [facility] Laboratory Services. Lab Interpretation Abnormal (test code = 44584-5) [facility] [id number]55:16 Test Item Value Reference Range Interpretation Comments Valproic Acid, Free 3.7 ug/mL 4.0-15.0 L (test code = 4981471196) ANKIT (test code = ANKIT) Toxic Range: ? Greater than 15 ug/mL Test developed and characteristics determined by [facility] Laboratory Services. Lab Interpretation Abnormal (test code = 83538-6) [facility] ([id number])2022-08-29 23:05:37 Test Item Value Reference Range Interpretation Comments NA (test code = 141 mmol/L 135-145 0124368934) K (test code = 4.2 mmol/L 3.5-5.0 8406786849) CL (test code = 105 mmol/L 98-108 4217711975) CO2 TOTAL (test code 28 mmol/L 23-31 = 5984279825) AGAP (test code = 8 2-16 5653076057) BUN (test code = 16 mg/dL 7-23 6296475053) GLUCOSE (test code = 70 mg/dL 70-110 2050832712) CREATININE (test code 0.89 mg/dL 0.60-1.25 = 6363535644) TOTAL BILI (test code 0.8 mg/dL 0.1-1.1 = 5961829652) CALCIUM (test code = 8.9 mg/dL 8.6-10.6 4216895063) T PROTEIN (test code 7.7 g/dL 6.3-8.2 = 6023769058) ALBUMIN (test code = 4.5 g/dL 3.5-5.0 4926717582) ALK PHOS (test code = 70 U/L 34-122 3503215517) ALTv (test code = 31 U/L 5-50 1742-6) AST(SGOT) (test code 23 U/L 13-40 = 7370265671) eGFR (test code = 96.7 mL/min/1.73m2 7039575453) ANKIT (test code = ANKIT) Association of Glomerular Filtration Rate (GFR) and Staging of Kidney Disease* + + +- +| GFR (mL/min/1.73 m2) ?| With Kidney Damage ?| ?Without Kidney Damage+ ------+ ----+ ------+| ?>90 ?| ?Stage one ?| ? Normal ?+ -+ + -+| ?60-89 ?| ?Stage two ?| ? Decreased GFR ? + + +- +| ?30-59 ?| ?Stage three ?| ? Stage three ? + + +- +| ?15-29 ?| ?Stage four ? | ? Stage four ?+ -+ + -+| ?<15 (or dialysis) ? ?| ?Stage five ? | ? Stage five ?+ -+ + -+ *Each stage assumes the associated GFR level has been in effect for at least three months. ?Stages 1 to 5, with or without kidney disease, indicate chronic kidney disease. Notes: Determination of stages one and two (with eGFR >59mL/min/1.73 m2) requires estimation of kidney damage for at least three months as defined by structural or functional abnormalities of the kidney, manifested by either:Pathological abnormalities or Markers of kidney damage (including abnormalities in the composition of the blood or urine or abnormalities in imaging tests). [facility] ([id number][facility]2022-08-29 23:05:37 Test Item Value Reference Range Interpretation Comments NA (test code = 141 mmol/L 135-145 2652291935) K (test code = 4.2 mmol/L 3.5-5.0 1884462555) CL (test code = 105 mmol/L 98-108 0897958011) CO2 TOTAL (test code 28 mmol/L 23-31 = 6933990938) AGAP (test code = 8 2-16 5375526752) BUN (test code = 16 mg/dL 7-23 3217716823) GLUCOSE (test code = 70 mg/dL 70-110 6696065435) CREATININE (test code 0.89 mg/dL 0.60-1.25 = 5644763991) TOTAL BILI (test code 0.8 mg/dL 0.1-1.1 = 5653870709) CALCIUM (test code = 8.9 mg/dL 8.6-10.6 9093236817) T PROTEIN (test code 7.7 g/dL 6.3-8.2 = 5832650316) ALBUMIN (test code = 4.5 g/dL 3.5-5.0 5359467682) ALK PHOS (test code = 70 U/L 34-122 2996836830) ALTv (test code = 31 U/L 5-50 1742-6) AST(SGOT) (test code 23 U/L 13-40 = 8704399287) eGFR (test code = 96.7 mL/min/1.73m2 4988294424) ANKIT (test code = ANKIT) Association of Glomerular Filtration Rate (GFR) and Staging of Kidney Disease* + + +- +| GFR (mL/min/1.73 m2) ?| With Kidney Damage ?| ?Without Kidney Damage+ ------+ ----+ ------+| ?>90 ?| ?Stage one ?| ? Normal ?+ -+ + -+| ?60-89 ?| ?Stage two ?| ? Decreased GFR ? + + +- +| ?30-59 ?| ?Stage three ?| ? Stage three ? + + +- +| ?15-29 ?| ?Stage four ? | ? Stage four ?+ -+ + -+| ?<15 (or dialysis) ? ?| ?Stage five ? | ? Stage five ?+ -+ + -+ *Each stage assumes the associated GFR level has been in effect for at least three months. ?Stages 1 to 5, with or without kidney disease, indicate chronic kidney disease. Notes: Determination of stages one and two (with eGFR >59mL/min/1.73 m2) requires estimation of kidney damage for at least three months as defined by structural or functional abnormalities of the kidney, manifested by either:Pathological abnormalities or Markers of kidney damage (including abnormalities in the composition of the blood or urine or abnormalities in imaging tests). [facility] WITH [id number] 19:30:39 Test Item Value Reference Range Interpretation Comments WBC (test code = 6.05 See_Comment [Automated 7744-2) message] The sy stem which generated this result transmitted reference range : 4.20 - 10.70 10*3/?L. The reference range was not used to interpret this result as normal/abnormal . RBC (test code = 5.24 See_Comment [Automated 694-8) message] The sy stem which generated this result transmitted reference range : 4.26 - 5.52 10*6/?L. The reference range was not used to interpret this result as normal/abnormal . HGB (test code = 15.5 g/dL 12.2-16.4 718-7) HCT (test code = 46.3 % 38.4-49.3 4544-3) MCV (test code = 88.4 fL 81.7-95.6 787-2) MCH (test code = 29.6 pg 26.1-32.7 785-6) MCHC (test code = 33.5 g/dL 31.2-35.0 786-4) RDW-SD (test code = 39.0 fL 38.5-51.6 25145-0) RDW-CV (test code = 12.0 % 12.1-15.4 L 788-0) PLT (test code = 276 See_Comment [Automated 589-3) message] The sy stem which generated this result transmitted reference range : 150 - 328 10*3/ ?L. The reference r rocky was not used to interpret this result as normal/abnormal . MPV (test code = 10.1 fL 9.8-13.0 24004-9) NRBC/100 WBC (test 0.0 See_Comment [Automat ed code = 8679838988) message] The system which generated this result transmitted reference range : 0.0 - 10.0 /100 WBCs. The refer ence range was not u sed to interpret th is result as normal/abnormal . NRBC x10^3 (test code See_Comment [Auto mated = 6191317744) message] The s ystem which generated this result transmitted reference range : 10*3/?L. The reference range was not used to interpret this result as normal/abnormal . GRAN MAT (NEUT) % 52.9 % (test code = 770-8) IMM GRAN % (test code 0.20 % = 5857912121) LYMPH % (test code = 31.2 % 736-9) MONO % (test code = 11.7 % 5905-5) EOS % (test code = 2.5 % 713-8) BASO % (test code = 1.5 % 706-2) GRAN MAT x10^3(ANC) 3.20 10*3/uL 1.99-6.95 (test code = 7328196667) IMM GRAN x10^3 (test 0.00-0.06 code = 8525932816) LYMPH x10^3 (test code 1.89 10*3/uL 1.09-3.23 = 731-0) MONO x10^3 (test code 0.71 10*3/uL 0.36-1.02 = 742-7) EOS x10^3 (test code = 0.15 10*3/uL 0.06-0.53 711-2) BASO x10^3 (test code 0.09 10*3/uL 0.01-0.09 = 704-7) Lab Interpretation Abnormal (test code = 54110-0) [facility] WITH [id number] 19:30:39 Test Item Value Reference Range Interpretation Comments WBC (test code = 6.05 See_Comment [Automated 6690-2) message] The sy stem which generated this result transmitted reference range : 4.20 - 10.70 10*3/?L. The reference range was not used to interpret this result as normal/abnormal . RBC (test code = 5.24 See_Comment [Automated 789-8) message] The sy stem which generated this result transmitted reference range : 4.26 - 5.52 10*6/?L. The reference range was not used to interpret this result as normal/abnormal . HGB (test code = 15.5 g/dL 12.2-16.4 718-7) HCT (test code = 46.3 % 38.4-49.3 4544-3) MCV (test code = 88.4 fL 81.7-95.6 787-2) MCH (test code = 29.6 pg 26.1-32.7 785-6) MCHC (test code = 33.5 g/dL 31.2-35.0 786-4) RDW-SD (test code = 39.0 fL 38.5-51.6 86250-5) RDW-CV (test code = 12.0 % 12.1-15.4 L 788-0) PLT (test code = 276 See_Comment [Automated 777-3) message] The sy stem which generated this result transmitted reference range : 150 - 328 10*3/ ?L. The reference r rocky was not used to interpret this result as normal/abnormal . MPV (test code = 10.1 fL 9.8-13.0 23454-2) NRBC/100 WBC (test 0.0 See_Comment [Automat ed code = 4968450150) message] The system which generated this result transmitted reference range : 0.0 - 10.0 /100 WBCs. The refer ence range was not u sed to interpret th is result as normal/abnormal . NRBC x10^3 (test code See_Comment [Auto mated = 1807245871) message] The s ystem which generated this result transmitted reference range : 10*3/?L. The reference range was not used to interpret this result as normal/abnormal . GRAN MAT (NEUT) % 52.9 % (test code = 770-8) IMM GRAN % (test code 0.20 % = 8256429394) LYMPH % (test code = 31.2 % 736-9) MONO % (test code = 11.7 % 5905-5) EOS % (test code = 2.5 % 713-8) BASO % (test code = 1.5 % 706-2) GRAN MAT x10^3(ANC) 3.20 10*3/uL 1.99-6.95 (test code = 8491177426) IMM GRAN x10^3 (test 0.00-0.06 code = 9338432767) LYMPH x10^3 (test code 1.89 10*3/uL 1.09-3.23 = 731-0) MONO x10^3 (test code 0.71 10*3/uL 0.36-1.02 = 742-7) EOS x10^3 (test code = 0.15 10*3/uL 0.06-0.53 711-2) BASO x10^3 (test code 0.09 10*3/uL 0.01-0.09 = 704-7) Lab Interpretation Abnormal (test code = 54447-5) [facility] [id number] 09:00:59 Test Item Value Reference Range Interpretation Comments Valproic Acid, Free 4.0-15.0 L (test code = 5874273504) ANKIT (test code = ANKIT) Toxic Range: ? Greater than 15 ug/mL Test developed and characteristics determined by [facility] Laboratory Services. Lab Interpretation Abnormal (test code = 32669-3) [facility], [id number] 09:00:59 Test Item Value Reference Range Interpretation Comments Valproic Acid, Free 4.0-15.0 L (test code = 0704246729) ANKIT (test code = ANKIT) Toxic Range: ? Greater than 15 ug/mL Test developed and characteristics determined by [facility] Laboratory Services. Lab Interpretation Abnormal (test code = 63325-9) [facility], [id number] 09:00:59 Test Item Value Reference Range Interpretation Comments Valproic Acid, Free 4.0-15.0 L (test code = 4332116263) ANKIT (test code = ANKIT) Toxic Range: ? Greater than 15 ug/mL Test developed and characteristics determined by [facility] Laboratory Services. Lab Interpretation Abnormal (test code = 96061-1) [facility], [id number] 09:00:59 Test Item Value Reference Range Interpretation Comments Valproic Acid, Free 4.0-15.0 L (test code = 5163942069) ANKIT (test code = ANKIT) Toxic Range: ? Greater than 15 ug/mL Test developed and characteristics determined by [facility] Laboratory Services. Lab Interpretation Abnormal (test code = 46331-1) [facility], [id number] 09:00:59 Test Item Value Reference Range Interpretation Comments Valproic Acid, Free 4.0-15.0 L (test code = 7470200464) ANKIT (test code = ANKIT) Toxic Range: ? Greater than 15 ug/mL Test developed and characteristics determined by [facility] Laboratory Services. Lab Interpretation Abnormal (test code = 65917-7) [facility], [id number] 09:00:59 Test Item Value Reference Range Interpretation Comments Valproic Acid, Free 4.0-15.0 L (test code = 4922531673) ANKIT (test code = ANKIT) Toxic Range: ? Greater than 15 ug/mL Test developed and characteristics determined by [facility] Laboratory Services. Lab Interpretation Abnormal (test code = 73410-8) [facility], [id number] 09:00:59 Test Item Value Reference Range Interpretation Comments Valproic Acid, Free 4.0-15.0 L (test code = 4466362891) ANKIT (test code = ANKIT) Toxic Range: ? Greater than 15 ug/mL Test developed and characteristics determined by [facility] Laboratory Services. Lab Interpretation Abnormal (test code = 33541-2) [facility], [id number] 09:00:59 Test Item Value Reference Range Interpretation Comments Valproic Acid, Free 4.0-15.0 L (test code = 8637855713) ANKIT (test code = ANKIT) Toxic Range: ? Greater than 15 ug/mL Test developed and characteristics determined by [facility] Laboratory Services. Lab Interpretation Abnormal (test code = 69838-7) [facility]. METABOLIC PANEL ([id number])2022-06-24 05:24:35 Test Item Value Reference Range Interpretation Comments NA (test code = 141 mmol/L 135-145 3189222011) K (test code = 4.0 mmol/L 3.5-5.0 9279141665) CL (test code = 107 mmol/L 98-108 2753638655) CO2 TOTAL (test code 27 mmol/L 23-31 = 5080278908) AGAP (test code = 2-16 0798022306) BUN (test code = 15 mg/dL 7-23 3942846863) GLUCOSE (test code = 100 mg/dL 70-110 1857562267) CREATININE (test code 0.97 mg/dL 0.60-1.25 = 4068135243) TOTAL BILI (test code 0.6 mg/dL 0.1-1.1 = 8261694127) CALCIUM (test code = 9.2 mg/dL 8.6-10.6 8045776151) T PROTEIN (test code 6.8 g/dL 6.3-8.2 = 8654237457) ALBUMIN (test code = 4.3 g/dL 3.5-5.0 0637990331) ALK PHOS (test code = 70 U/L 34-122 9467063344) ALTv (test code = 32 U/L 5-50 1742-6) AST(SGOT) (test code 31 U/L 13-40 = 4502821128) eGFR (test code = mL/min/1.73m2 1805965643) ANKIT (test code = ANKIT) Association of Glomerular Filtration Rate (GFR) and Staging of Kidney Disease* + + +- +| GFR (mL/min/1.73 m2) ?| With Kidney Damage ?| ?Without Kidney Damage+ ------+ ----+ ------+| ?>90 ?| ?Stage one ?| ? Normal ?+ -+ + -+| ?60-89 ?| ?Stage two ?| ? Decreased GFR ? + + +- +| ?30-59 ?| ?Stage three ?| ? Stage three ? + + +- +| ?15-29 ?| ?Stage four ? | ? Stage four ?+ -+ + -+| ?<15 (or dialysis) ? ?| ?Stage five ? | ? Stage five ?+ -+ + -+ *Each stage assumes the associated GFR level has been in effect for at least three months. ?Stages 1 to 5, with or without kidney disease, indicate chronic kidney disease. Notes: Determination of stages one and two (with eGFR >59mL/min/1.73 m2) requires estimation of kidney damage for at least three months as defined by structural or functional abnormalities of the kidney, manifested by either:Pathological abnormalities or Markers of kidney damage (including abnormalities in the composition of the blood or urine or abnormalities in imaging tests). [facility]. METABOLIC PANEL ([id number])2022-06-24 05:24:35 Test Item Value Reference Range Interpretation Comments NA (test code = 141 mmol/L 135-145 5438451809) K (test code = 4.0 mmol/L 3.5-5.0 2858832593) CL (test code = 107 mmol/L 98-108 3068208558) CO2 TOTAL (test code 27 mmol/L 23-31 = 6635637755) AGAP (test code = 2-16 5390568529) BUN (test code = 15 mg/dL 7-23 0700462846) GLUCOSE (test code = 100 mg/dL 70-110 1070724117) CREATININE (test code 0.97 mg/dL 0.60-1.25 = 6398492553) TOTAL BILI (test code 0.6 mg/dL 0.1-1.1 = 9953149298) CALCIUM (test code = 9.2 mg/dL 8.6-10.6 1346706241) T PROTEIN (test code 6.8 g/dL 6.3-8.2 = 0282375427) ALBUMIN (test code = 4.3 g/dL 3.5-5.0 6953319974) ALK PHOS (test code = 70 U/L 34-122 4268850613) ALTv (test code = 32 U/L 5-50 1742-6) AST(SGOT) (test code 31 U/L 13-40 = 9628296371) eGFR (test code = mL/min/1.73m2 0409636004) ANKIT (test code = ANKIT) Association of Glomerular Filtration Rate (GFR) and Staging of Kidney Disease* + + +- +| GFR (mL/min/1.73 m2) ?| With Kidney Damage ?| ?Without Kidney Damage+ ------+ ----+ ------+| ?>90 ?| ?Stage one ?| ? Normal ?+ -+ + -+| ?60-89 ?| ?Stage two ?| ? Decreased GFR ? + + +- +| ?30-59 ?| ?Stage three ?| ? Stage three ? + + +- +| ?15-29 ?| ?Stage four ? | ? Stage four ?+ -+ + -+| ?<15 (or dialysis) ? ?| ?Stage five ? | ? Stage five ?+ -+ + -+ *Each stage assumes the associated GFR level has been in effect for at least three months. ?Stages 1 to 5, with or without kidney disease, indicate chronic kidney disease. Notes: Determination of stages one and two (with eGFR >59mL/min/1.73 m2) requires estimation of kidney damage for at least three months as defined by structural or functional abnormalities of the kidney, manifested by either:Pathological abnormalities or Markers of kidney damage (including abnormalities in the composition of the blood or urine or abnormalities in imaging tests). [facility]. METABOLIC PANEL ([id number])2022-06-24 05:24:35 Test Item Value Reference Range Interpretation Comments NA (test code = 141 mmol/L 135-145 3274293812) K (test code = 4.0 mmol/L 3.5-5.0 9276787835) CL (test code = 107 mmol/L 98-108 5244221728) CO2 TOTAL (test code 27 mmol/L 23-31 = 9621778440) AGAP (test code = 2-16 0151757993) BUN (test code = 15 mg/dL 7-23 9378208295) GLUCOSE (test code = 100 mg/dL 70-110 5968934438) CREATININE (test code 0.97 mg/dL 0.60-1.25 = 8276041792) TOTAL BILI (test code 0.6 mg/dL 0.1-1.1 = 6082075700) CALCIUM (test code = 9.2 mg/dL 8.6-10.6 2591693033) T PROTEIN (test code 6.8 g/dL 6.3-8.2 = 3033002594) ALBUMIN (test code = 4.3 g/dL 3.5-5.0 8013694012) ALK PHOS (test code = 70 U/L 34-122 5599456796) ALTv (test code = 32 U/L 5-50 1742-6) AST(SGOT) (test code 31 U/L 13-40 = 0109089493) eGFR (test code = mL/min/1.73m2 7977292500) ANKIT (test code = ANKIT) Association of Glomerular Filtration Rate (GFR) and Staging of Kidney Disease* + + +- +| GFR (mL/min/1.73 m2) ?| With Kidney Damage ?| ?Without Kidney Damage+ ------+ ----+ ------+| ?>90 ?| ?Stage one ?| ? Normal ?+ -+ + -+| ?60-89 ?| ?Stage two ?| ? Decreased GFR ? + + +- +| ?30-59 ?| ?Stage three ?| ? Stage three ? + + +- +| ?15-29 ?| ?Stage four ? | ? Stage four ?+ -+ + -+| ?<15 (or dialysis) ? ?| ?Stage five ? | ? Stage five ?+ -+ + -+ *Each stage assumes the associated GFR level has been in effect for at least three months. ?Stages 1 to 5, with or without kidney disease, indicate chronic kidney disease. Notes: Determination of stages one and two (with eGFR >59mL/min/1.73 m2) requires estimation of kidney damage for at least three months as defined by structural or functional abnormalities of the kidney, manifested by either:Pathological abnormalities or Markers of kidney damage (including abnormalities in the composition of the blood or urine or abnormalities in imaging tests). [facility]. METABOLIC PANEL ([id number])2022-06-24 05:24:35 Test Item Value Reference Range Interpretation Comments NA (test code = 141 mmol/L 135-145 9088601759) K (test code = 4.0 mmol/L 3.5-5.0 6899080150) CL (test code = 107 mmol/L 98-108 7772509967) CO2 TOTAL (test code 27 mmol/L 23-31 = 7236501272) AGAP (test code = 2-16 1574275954) BUN (test code = 15 mg/dL 7-23 3716326169) GLUCOSE (test code = 100 mg/dL 70-110 6815921713) CREATININE (test code 0.97 mg/dL 0.60-1.25 = 6353105724) TOTAL BILI (test code 0.6 mg/dL 0.1-1.1 = 0529986313) CALCIUM (test code = 9.2 mg/dL 8.6-10.6 2048899122) T PROTEIN (test code 6.8 g/dL 6.3-8.2 = 6777080778) ALBUMIN (test code = 4.3 g/dL 3.5-5.0 6689477651) ALK PHOS (test code = 70 U/L 34-122 9613886668) ALTv (test code = 32 U/L 5-50 1742-6) AST(SGOT) (test code 31 U/L 13-40 = 2308072584) eGFR (test code = mL/min/1.73m2 4272736795) ANKIT (test code = ANKIT) Association of Glomerular Filtration Rate (GFR) and Staging of Kidney Disease* + + +- +| GFR (mL/min/1.73 m2) ?| With Kidney Damage ?| ?Without Kidney Damage+ ------+ ----+ ------+| ?>90 ?| ?Stage one ?| ? Normal ?+ -+ + -+| ?60-89 ?| ?Stage two ?| ? Decreased GFR ? + + +- +| ?30-59 ?| ?Stage three ?| ? Stage three ? + + +- +| ?15-29 ?| ?Stage four ? | ? Stage four ?+ -+ + -+| ?<15 (or dialysis) ? ?| ?Stage five ? | ? Stage five ?+ -+ + -+ *Each stage assumes the associated GFR level has been in effect for at least three months. ?Stages 1 to 5, with or without kidney disease, indicate chronic kidney disease. Notes: Determination of stages one and two (with eGFR >59mL/min/1.73 m2) requires estimation of kidney damage for at least three months as defined by structural or functional abnormalities of the kidney, manifested by either:Pathological abnormalities or Markers of kidney damage (including abnormalities in the composition of the blood or urine or abnormalities in imaging tests). [facility]. METABOLIC PANEL ([id number])2022-06-24 05:24:35 Test Item Value Reference Range Interpretation Comments NA (test code = 141 mmol/L 135-145 7761544235) K (test code = 4.0 mmol/L 3.5-5.0 8178447390) CL (test code = 107 mmol/L 98-108 7177364813) CO2 TOTAL (test code 27 mmol/L 23-31 = 4846296189) AGAP (test code = 2-16 9611296994) BUN (test code = 15 mg/dL 7-23 5550215817) GLUCOSE (test code = 100 mg/dL 70-110 4300540092) CREATININE (test code 0.97 mg/dL 0.60-1.25 = 2696258249) TOTAL BILI (test code 0.6 mg/dL 0.1-1.1 = 2021709950) CALCIUM (test code = 9.2 mg/dL 8.6-10.6 6351126968) T PROTEIN (test code 6.8 g/dL 6.3-8.2 = 2568772190) ALBUMIN (test code = 4.3 g/dL 3.5-5.0 0684596071) ALK PHOS (test code = 70 U/L 34-122 8484535833) ALTv (test code = 32 U/L 5-50 1742-6) AST(SGOT) (test code 31 U/L 13-40 = 2078317663) eGFR (test code = mL/min/1.73m2 6123820028) ANKIT (test code = ANKIT) Association of Glomerular Filtration Rate (GFR) and Staging of Kidney Disease* + + +- +| GFR (mL/min/1.73 m2) ?| With Kidney Damage ?| ?Without Kidney Damage+ ------+ ----+ ------+| ?>90 ?| ?Stage one ?| ? Normal ?+ -+ + -+| ?60-89 ?| ?Stage two ?| ? Decreased GFR ? + + +- +| ?30-59 ?| ?Stage three ?| ? Stage three ? + + +- +| ?15-29 ?| ?Stage four ? | ? Stage four ?+ -+ + -+| ?<15 (or dialysis) ? ?| ?Stage five ? | ? Stage five ?+ -+ + -+ *Each stage assumes the associated GFR level has been in effect for at least three months. ?Stages 1 to 5, with or without kidney disease, indicate chronic kidney disease. Notes: Determination of stages one and two (with eGFR >59mL/min/1.73 m2) requires estimation of kidney damage for at least three months as defined by structural or functional abnormalities of the kidney, manifested by either:Pathological abnormalities or Markers of kidney damage (including abnormalities in the composition of the blood or urine or abnormalities in imaging tests). [facility]. METABOLIC PANEL ([id number])2022-06-24 05:24:35 Test Item Value Reference Range Interpretation Comments NA (test code = 141 mmol/L 135-145 0408208232) K (test code = 4.0 mmol/L 3.5-5.0 9219154313) CL (test code = 107 mmol/L 98-108 9848020251) CO2 TOTAL (test code 27 mmol/L 23-31 = 4908511601) AGAP (test code = 7 2-16 9264130148) BUN (test code = 15 mg/dL 7-23 6326842007) GLUCOSE (test code = 100 mg/dL 70-110 8854018465) CREATININE (test code 0.97 mg/dL 0.60-1.25 = 9088713989) TOTAL BILI (test code 0.6 mg/dL 0.1-1.1 = 3598514192) CALCIUM (test code = 9.2 mg/dL 8.6-10.6 6640858915) T PROTEIN (test code 6.8 g/dL 6.3-8.2 = 3350474394) ALBUMIN (test code = 4.3 g/dL 3.5-5.0 2429112537) ALK PHOS (test code = 70 U/L 34-122 2225488731) ALTv (test code = 32 U/L 5-50 1742-6) AST(SGOT) (test code 31 U/L 13-40 = 9784568174) eGFR (test code = 87.6 mL/min/1.73m2 7077804163) ANKIT (test code = ANKIT) Association of Glomerular Filtration Rate (GFR) and Staging of Kidney Disease* + + +- +| GFR (mL/min/1.73 m2) ?| With Kidney Damage ?| ?Without Kidney Damage+ ------+ ----+ ------+| ?>90 ?| ?Stage one ?| ? Normal ?+ -+ + -+| ?60-89 ?| ?Stage two ?| ? Decreased GFR ? + + +- +| ?30-59 ?| ?Stage three ?| ? Stage three ? + + +- +| ?15-29 ?| ?Stage four ? | ? Stage four ?+ -+ + -+| ?<15 (or dialysis) ? ?| ?Stage five ? | ? Stage five ?+ -+ + -+ *Each stage assumes the associated GFR level has been in effect for at least three months. ?Stages 1 to 5, with or without kidney disease, indicate chronic kidney disease. Notes: Determination of stages one and two (with eGFR >59mL/min/1.73 m2) requires estimation of kidney damage for at least three months as defined by structural or functional abnormalities of the kidney, manifested by either:Pathological abnormalities or Markers of kidney damage (including abnormalities in the composition of the blood or urine or abnormalities in imaging tests). [facility]. METABOLIC PANEL ([id number])2022-06-24 05:24:35 Test Item Value Reference Range Interpretation Comments NA (test code = 141 mmol/L 135-145 [id number]) K (test code = 4.0 mmol/L 3.5-5.0 [id number]) CL (test code = 107 mmol/L 98-108 [id number]) CO2 TOTAL (test code 27 mmol/L 23-31 = [id number]) AGAP (test code = 7 2-16 [id number]) BUN (test code = 15 mg/dL 7-23 [id number]) GLUCOSE (test code = 100 mg/dL 70-110 0348881856) CREATININE (test code 0.97 mg/dL 0.60-1.25 = 1364403376) TOTAL BILI (test code 0.6 mg/dL 0.1-1.1 = 1419131179) CALCIUM (test code = 9.2 mg/dL 8.6-10.6 8013402955) T PROTEIN (test code 6.8 g/dL 6.3-8.2 = 0193843803) ALBUMIN (test code = 4.3 g/dL 3.5-5.0 7297569855) ALK PHOS (test code = 70 U/L 34-122 0937533392) ALTv (test code = 32 U/L 5-50 1742-6) AST(SGOT) (test code 31 U/L 13-40 = 5922825473) eGFR (test code = 87.6 mL/min/1.73m2 8961519988) ANKIT (test code = ANKIT) Association of Glomerular Filtration Rate (GFR) and Staging of Kidney Disease* + + +- +| GFR (mL/min/1.73 m2) ?| With Kidney Damage ?| ?Without Kidney Damage+ ------+ ----+ ------+| ?>90 ?| ?Stage one ?| ? Normal ?+ -+ + -+| ?60-89 ?| ?Stage two ?| ? Decreased GFR ? + + +- +| ?30-59 ?| ?Stage three ?| ? Stage three ? + + +- +| ?15-29 ?| ?Stage four ? | ? Stage four ?+ -+ + -+| ?<15 (or dialysis) ? ?| ?Stage five ? | ? Stage five ?+ -+ + -+ *Each stage assumes the associated GFR level has been in effect for at least three months. ?Stages 1 to 5, with or without kidney disease, indicate chronic kidney disease. Notes: Determination of stages one and two (with eGFR >59mL/min/1.73 m2) requires estimation of kidney damage for at least three months as defined by structural or functional abnormalities of the kidney, manifested by either:Pathological abnormalities or Markers of kidney damage (including abnormalities in the composition of the blood or urine or abnormalities in imaging tests). [facility]. METABOLIC PANEL ([id number])2022-06-24 05:24:35 Test Item Value Reference Range Interpretation Comments NA (test code = 141 mmol/L 135-145 [id number]) K (test code = 4.0 mmol/L 3.5-5.0 5167221867) CL (test code = 107 mmol/L 98-108 9418553709) CO2 TOTAL (test code 27 mmol/L 23-31 = 7725691624) AGAP (test code = 7 2-16 4676372158) BUN (test code = 15 mg/dL 7-23 0243773111) GLUCOSE (test code = 100 mg/dL 70-110 7188488475) CREATININE (test code 0.97 mg/dL 0.60-1.25 = 3404852550) TOTAL BILI (test code 0.6 mg/dL 0.1-1.1 = 5006946759) CALCIUM (test code = 9.2 mg/dL 8.6-10.6 8477974285) T PROTEIN (test code 6.8 g/dL 6.3-8.2 = 2435975648) ALBUMIN (test code = 4.3 g/dL 3.5-5.0 3927002674) ALK PHOS (test code = 70 U/L 34-122 5652220176) ALTv (test code = 32 U/L 5-50 1742-6) AST(SGOT) (test code 31 U/L 13-40 = 0725358956) eGFR (test code = 87.6 mL/min/1.73m2 7179631097) ANKIT (test code = ANKIT) Association of Glomerular Filtration Rate (GFR) and Staging of Kidney Disease* + + +- +| GFR (mL/min/1.73 m2) ?| With Kidney Damage ?| ?Without Kidney Damage+ ------+ ----+ ------+| ?>90 ?| ?Stage one ?| ? Normal ?+ -+ + -+| ?60-89 ?| ?Stage two ?| ? Decreased GFR ? + + +- +| ?30-59 ?| ?Stage three ?| ? Stage three ? + + +- +| ?15-29 ?| ?Stage four ? | ? Stage four ?+ -+ + -+| ?<15 (or dialysis) ? ?| ?Stage five ? | ? Stage five ?+ -+ + -+ *Each stage assumes the associated GFR level has been in effect for at least three months. ?Stages 1 to 5, with or without kidney disease, indicate chronic kidney disease. Notes: Determination of stages one and two (with eGFR >59mL/min/1.73 m2) requires estimation of kidney damage for at least three months as defined by structural or functional abnormalities of the kidney, manifested by either:Pathological abnormalities or Markers of kidney damage (including abnormalities in the composition of the blood or urine or abnormalities in imaging tests). [facility] (NA, K, CL, CO2, GLUCOSE, BUN, CREATININE, CA)2022-03-11 21:21:50 Test Item Value Reference Range Interpretation Comments NA (test code = 140 mmol/L 135-145 2742569434) K (test code = 4.6 mmol/L 3.5-5 7350616607) CL (test code = 104 mmol/L 98-108 8876366419) CO2 TOTAL (test code 26 mmol/L 23-31 = 2891441703) AGAP (test code = 2-16 4621439582) BUN (test code = 11 mg/dL 7-23 9568589305) GLUCOSE (test code = 86 mg/dL 70-110 6918251829) CREATININE (test code 0.99 mg/dL 0.6-1.25 = 6742331762) CALCIUM (test code = 9.4 mg/dL 8.6-10.6 8068211795) eGFR (test code = mL/min/1.73m2 0146873984) ANKIT (test code = ANKIT) Association of Glomerular Filtration Rate (GFR) and Staging of Kidney Disease* + + +- +| GFR (mL/min/1.73 m2) ?| With Kidney Damage ?| ?Without Kidney Damage+ ------+ ----+ ------+| ?>90 ?| ?Stage one ?| ? Normal ?+ -+ + -+| ?60-89 ?| ?Stage two ?| ? Decreased GFR ? + + +- +| ?30-59 ?| ?Stage three ?| ? Stage three ? + + +- +| ?15-29 ?| ?Stage four ? | ? Stage four ?+ -+ + -+| ?<15 (or dialysis) ? ?| ?Stage five ? | ? Stage five ?+ -+ + -+ *Each stage assumes the associated GFR level has been in effect for at least three months. ?Stages 1 to 5, with or without kidney disease, indicate chronic kidney disease. Notes: Determination of stages one and two (with eGFR >59mL/min/1.73 m2) requires estimation of kidney damage for at least three months as defined by structural or functional abnormalities of the kidney, manifested by either:Pathological abnormalities or Markers of kidney damage (including abnormalities in the composition of the blood or urine or abnormalities in imaging tests). [id number]TOTAL CHOLESTEROL, TRIGLYCERIDES, HDL)2022-03-11 20:58:22 Test Item Value Reference Range Interpretation Comments CHOL (test code = 239 mg/dL 120-200 H [id number]) HDL (test code = 34 mg/dL See_Comment L [Automated message] 7578191041) The system Flashpoint generated this result transmit laura reference range : >=40. The refer ence range was not u sed to interpret th is result as normal/abnormal . HDLC RATIO (test code = See_Comment H [Au tomated message] 5268710043) The system [employer] generated this result transmit laura reference range : <=5.0. The refe rence range was not u sed to interpret th is result as normal/abnormal . TRIG (test code = 132 mg/dL 30-170 5806121507) LDL CHOL (test code = 179 mg/dL See_Comment H [Auto mated message] 29248-6) The system [employer] generated this result transmit laura reference range : <=160. The refe rence range was not u sed to interpret th is result as normal/abnormal . VLDL (test code = 26 mg/dL 5-60 6868112525) Lab Interpretation (test Abnormal code = 39672-3) [facility]"
[2022-11-07 22:50] LABS: Absolute Lymphocytes (CBC) 1.7 K/uL (0.7-4.9); Hematocrit 40.5 % (39.6-49.0); Lymphocytes % 15.5 % (15.3-44.8); MCV 85.6 fL (80-100); MPV 7.4 fL (7.6-11.3); RBC Red Blood Cell Count 4.73 M/uL (4.33-5.43)
[2022-11-07] MEDS ORDERED: MORPHINE 4 MG/ML SYR ONE (22:51)
[2022-11-07] MEDS ORDERED: ONDANSETRON 4 MG/2 ML VIAL ONE (22:52)
[2022-11-07] MEDS ORDERED: CEFTRIAXONE 1000 MG/VIAL ONE (22:52)
[2022-11-07] MEDS ORDERED: NA CHLORIDE 0.9% 500 ML ONE (22:52)
[2022-11-07] MEDS ORDERED: levoFLOXacin 250 MG TAB ONE (22:52)
[2022-11-07 23:02] LABS: Potassium 3.5 mEq/L (3.5-5.1)
[2022-11-08 00:42] LABS: Specific Gravity 1.017 (1.005-1.030); Urine Bacteria None Seen /HPF (<20); Urine Bilirubin NEGATIVE (Negative); Urine Blood Trace (Negative); Urine Clarity Clear (Clear); Urine Color Light-Yellow (Yellow); Urine Glucose NEGATIVE (Negative); Urine Mucus Slight /HPF (None Seen); Urine Protein NEGATIVE (Negative); Urine RBC <5 /HPF (None Seen); Urine Urobilinogen Normal (Normal); Urine pH 5.5 (5.0-7.0)
--- NOTE | 2022-11-08 00:58 | ER ---
Nurse's Notes [facility] Name: Camden Godinez Age: 37 yrs Sex: Male : 1985 Arrival Date: 11/07/2022 Time: 21:35 Bed 8 Private MD: Diagnosis: Epididymo-orchitis Presentation: 11/07 21:49 Chief complaint: Patient states: "Monday I started having testicular pain. It felt vc1 like someone kicked my and took my breath away. Now my right testicle is swollen and it hurts all the way up into my stomach.". Coronavirus screen: Vaccine status: Patient reports being unvaccinated. At this time, the client does not indicate any symptoms associated with coronavirus-19. Ebola Screen: Patient negative for fever greater than or equal to 101.5 degrees Fahrenheit, and additional compatible Ebola Virus Disease symptoms Patient denies exposure to infectious person. Patient denies travel to an Ebola-affected area in the 21 days before illness onset. No symptoms or risks identified at this time. Initial Sepsis Screen: Does the patient meet any 2 criteria? HR > 90 bpm. No. Patient's initial sepsis screen is negative. Does the patient have a suspected source of infection? No. Patient's initial sepsis screen is negative. Risk Assessment: Do you want to hurt yourself or someone else? Patient reports no desire to harm self or others. Onset of symptoms was November 05, 2022. 21:49 Method Of Arrival: Ambulatory vc1 21:49 Acuity: [place] 3 vc1 Triage Assessment: 21:51 General: Appears in no apparent distress. uncomfortable, Behavior is calm, cooperative, vc1 appropriate for age. Pain: Complains of pain in right testicle Pain radiates to groin and suprapubic area Pain currently is 7 out of 10 on a pain scale. Quality of pain is described as sharp, Pain began suddenly, 2-3 days ago. EENT: No deficits noted. No signs and/or symptoms were reported regarding the EENT system. Neuro: Level of Consciousness is awake, alert, obeys commands, Oriented to person, place, time, situation, Appropriate for age. Cardiovascular: No deficits noted. Respiratory: Airway is patent Respiratory effort is even, unlabored, Respiratory pattern is regular, symmetrical. GI: No deficits noted. No signs and/or symptoms were reported involving the gastrointestinal system. : No deficits noted. Derm: No deficits noted. No signs and/or symptoms reported regarding the dermatologic system. Musculoskeletal: No deficits noted. No signs and/or symptoms reported regarding the musculoskeletal system. Historical: - Allergies: 21:51 No Known Allergies; vc1 - Home Meds: 21:51 None [Active]; vc1 - PMHx: 21:51 Hypertension; vc1 - PSHx: 21:51 left knee; vc1 - Immunization history:: Client reports having NOT received the Covid vaccine. - Social history:: Smoking status: Patient denies any tobacco usage or history of. Screenin:51 Abuse screen: Denies threats or abuse. Nutritional screening: No deficits noted. vc1 Tuberculosis screening: No symptoms or risk factors identified. 11/08 01:16 [facility] ED Fall Risk Assessment (Adult) History of falling in the last 3 months, ll3 including since admission No falls in past 3 months (0 pts) Confusion or Disorientation No (0 pts) Intoxicated or Sedated No (0 pts) Impaired Gait No (0 pts) Mobility Assist Device Used No (0 pt) Altered Elimination No (0 pt) Score/Fall Risk Level 0 - 2 = Low Risk Oriented to surroundings, Maintained a safe environment, Educated pt \\T\\ family on fall prevention, incl call for assistance when getting out of bed. Assessment: 11/07 22:53 Reassessment: Patient appears in no apparent distress at this time. Patient is alert, kl oriented x 3, equal unlabored respirations, skin warm/dry/pink. Pain: Complains of pain in suprapubic area and pelvis and right testicle and groin Pain currently is 5 out of 10 on a pain scale. Vital Signs: 21:49 BP 132 / 82; Pulse 96; Resp 17; Temp 98.9; Pulse Ox 96% ; Weight 106.14 kg; Height 6 vc1 ft. 1 in. ; Pain 7/10; 22:54 BP 126 / 84; Pulse 78; Resp 18; Pulse Ox 96% on R/A; kl 11/08 00:15 BP 101 / 64; Pulse 93; Resp 18; Pulse Ox 90% on R/A; ll3 01:17 BP 107 / 65; Pulse 90; Resp 17; Pulse Ox 98% on R/A; ll3 11/07 21:49 Body Mass Index 30.87 (106.14 kg, 185.42 cm) vc1 04 21:49 Pain Scale: Adult vc1 ED Course: 11/07 21:35 Patient arrived in ED. ag3 21:43 Ayaz Matthews MD is Attending Physician. kdr 21:51 Triage completed. vc1 21:51 Arm band placed on left wrist. vc1 21:53 Patient has correct armband on for positive identification. Placed in gown. Bed in low vc1 position. Pulse ox on. NIBP on. 22:36 US Scrotum Testicles In Process Unspecified. EDMS 22:42 Chem 7 Sent. kl 22:42 CBC with Diff Sent. kl 22:53 Inserted saline lock: 20 gauge in left antecubital area, using aseptic technique. Blood kl collected. 11/08 00:58 Froilan Crane MD is Referral Physician. kdr 01:15 No provider procedures requiring assistance completed. IV discontinued, intact, ll3 bleeding controlled, No redness/swelling at site. Pressure dressing applied. Administered Medications: 11/07 22:40 Drug: Ondansetron IVP 4 mg Route: IVP; Site: left antecubital; 11/08 01:16 Follow up: Response: No adverse reaction ll3 11/07 22:45 Drug: morphine IVP or IV 4 mg Route: IVP; Infused Over: 4 mins; Site: left antecubital; 11/08 01:16 Follow up: Response: No adverse reaction; Marked relief of symptoms ll3 11/07 22:53 Drug: Rocephin - Rocephin (cefTRIAXone) IVPB 1 grams Route: IVPB; Infused Over: 30 kl mins; Site: left antecubital; 11/08 01:16 Follow up: Response: No adverse reaction; IV Status: Completed infusion; IV Intake: [id number] 11/07 22:53 Drug: LevOfloxacin PO 500 mg Route: PO; kl 11/08 01:16 Follow up: Response: No adverse reaction ll3 11/07 22:54 Drug: NS 0.9% IV 500 ml Route: IV; Rate: bolus; Site: left antecubital; Medication: 11/08 01:16 VIS not applicable for this client. ll3 Intake: 01:16 IV: 50ml; Total: 50ml. ll3 Outcome: 00:58 Discharge ordered by . salas 01:15 Discharged to home ambulatory. ll3 01:15 Condition: stable 01:15 Discharge instructions given to patient, Instructed on discharge instructions, follow up and referral plans. medication usage, Demonstrated understanding of instructions, follow-up care, medications, Prescriptions given X 2. 01:17 Patient left the ED. ll3 Signatures: Dispatcher [employer] EDMS Dyan Cuevas, RN RN Ayaz Ramírez MD MD kdr Gomez, Alice ag3 Loubet, Lynsea RN RN ll3 Gladis Archibald RN RN vc1
--- NOTE | 2022-11-08 00:59 | EDPHYS ---
Physician Documentation [facility] Name: Camden Godinez Age: 37 yrs Sex: Male : 1985 Arrival Date: 11/07/2022 Time: 21:35 Bed 8 Private MD: ED Physician Ayaz Matthews HPI: 11/08 03:17 This 37 yrs old Male presents to ER via Ambulatory with complaints of Abdominal Pain. kdr 03:17 This 37 yrs old Male presents to ER via Ambulatory with complaints of Testicular pain. kdr 03:17 Patient states that on Monday he started having testicular pain on the right side. He kdr stated it felt like somebody had kicked him and took his breath away. Since then the pain is improved but been intermittent until today. Today his pain became much worse and he feels that the right testicle is now swollen with moderate pain to the right testicle. Onset: The symptoms/episode began/occurred Monday. Severity of symptoms: At their worst the symptoms were moderate severe incapacitating. The patient has not experienced similar symptoms in the past. The patient has not recently seen a physician. Patient denies any trauma or urinary tract symptoms including discharge. He also does not have any parotid or neck swelling that might suggest mumps.. Historical: - Allergies: 11/07 21:51 No Known Allergies; vc1 - Home Meds: 21:51 None [Active]; vc1 - PMHx: 21:51 Hypertension; vc1 - PSHx: 21:51 left knee; vc1 - Immunization history:: Client reports having NOT received the Covid vaccine. - Social history:: Smoking status: Patient denies any tobacco usage or history of. ROS: 11/08 03:17 Constitutional: Negative for fever, chills, and weight loss, Eyes: Negative for injury, kdr pain, redness, and discharge, ENT: Negative for injury, pain, and discharge, Neck: Negative for injury, pain, and swelling, Cardiovascular: Negative for chest pain, palpitations, and edema, Respiratory: Negative for shortness of breath, cough, wheezing, and pleuritic chest pain, Abdomen/GI: Negative for abdominal pain, nausea, vomiting, diarrhea, and constipation, Back: Negative for injury and pain, MS/Extremity: Negative for injury and deformity, Skin: Negative for injury, rash, and discoloration, Neuro: Negative for headache, weakness, numbness, tingling, and seizure activity. Psych: Negative for depression, anxiety, suicide ideation, homicidal ideation, and hallucinations, Allergy/Immunology: Negative for hives, rash, and allergies, Endocrine: Negative for neck swelling, polydipsia, polyuria, polyphagia, and marked weight changes, Hematologic/Lymphatic: Negative for swollen nodes, abnormal bleeding, and unusual bruising. : Positive for testicular pain of the right testicle. Exam: 03:17 Constitutional: This is a well developed, well nourished patient who is awake, alert, kdr and in no acute distress. Head/Face: Normocephalic, atraumatic. Eyes: Pupils equal round and reactive to light, extra-ocular motions intact. Lids and lashes normal. Conjunctiva and sclera are non-icteric and not injected. Cornea within normal limits. Periorbital areas with no swelling, redness, or edema. Neck: Trachea midline, no thyromegaly or masses palpated, and no cervical lymphadenopathy. Supple, full range of motion without nuchal rigidity, or vertebral point tenderness. No Meningismus. Chest/axilla: Normal chest wall appearance and motion. Nontender with no deformity. No lesions are appreciated. Cardiovascular: Regular rate and rhythm with a normal S1 and S2. No gallops, murmurs, or rubs. Normal PMI, no JVD. No pulse deficits. Respiratory: Lungs have equal breath sounds bilaterally, clear to auscultation and percussion. No rales, rhonchi or wheezes noted. No increased work of breathing, no retractions or nasal flaring. Abdomen/GI: Soft, non-tender, with normal bowel sounds. No distension or tympany. No guarding or rebound. No evidence of tenderness throughout. Back: No spinal tenderness. No costovertebral tenderness. Full range of motion. Skin: Warm, dry with normal turgor. Normal color with no rashes, no lesions, and no evidence of cellulitis. MS/ Extremity: Pulses equal, no cyanosis. Neurovascular intact. Full, normal range of motion. Neuro: Awake and alert, GCS 15, oriented to person, place, time, and situation. Cranial nerves II-XII grossly intact. Motor strength 5/5 in all extremities. Sensory grossly intact. Cerebellar exam normal. Normal gait. Psych: Awake, alert, with orientation to person, place and time. Behavior, mood, and affect are within normal limits. 03:17 : CVA tenderness, is absent, Male external genitalia: Circumcision noted. penile discharge, is absent, swelling: of the right testicle is noted, testicle, of the epididymis area, that is mild, tenderness, of the right testicle is noted, of the epididymis area, that is mild. Vital Signs: 11/07 21:49 BP 132 / 82; Pulse 96; Resp 17; Temp 98.9; Pulse Ox 96% ; Weight 106.14 kg; Height 6 vc1 ft. 1 in. ; Pain 7/10; 22:54 BP 126 / 84; Pulse 78; Resp 18; Pulse Ox 96% on R/A; kl 11/08 00:15 BP 101 / 64; Pulse 93; Resp 18; Pulse Ox 90% on R/A; ll3 01:17 BP 107 / 65; Pulse 90; Resp 17; Pulse Ox 98% on R/A; ll3 11/07 21:49 Body Mass Index 30.87 (106.14 kg, 185.42 cm) vc1 11/07 21:49 Pain Scale: Adult vc1 MDM: 00:58 Patient medically screened. kdr 03:17 Data reviewed: vital signs, nurses notes, lab test result(s), radiologic studies. kdr 11/07 22:11 Order name: CBC with Diff; Complete Time: 00:37 kdr 11/07 22:11 Order name: Chem 7; Complete Time: 00:37 kdr 11/07 22:11 Order name: Urinalysis w/ reflexes; Complete Time: 00:50 kdr 11/07 22:11 Order name: US Scrotum Testicles kdr Administered Medications: 11/07 22:40 Drug: Ondansetron IVP 4 mg Route: IVP; Site: left antecubital; 11/08 01:16 Follow up: Response: No adverse reaction [facility] 11/07 22:45 Drug: morphine IVP or IV 4 mg Route: IVP; Infused Over: 4 mins; Site: left antecubital; 11/08 01:16 Follow up: Response: No adverse reaction; Marked relief of symptoms [facility] 11/07 22:53 Drug: Rocephin - Rocephin (cefTRIAXone) IVPB 1 grams Route: IVPB; Infused Over: 30 kl mins; Site: left antecubital; 11/08 01:16 Follow up: Response: No adverse reaction; IV Status: Completed infusion; IV Intake: [id number] 11/07 22:53 Drug: LevOfloxacin PO 500 mg Route: PO; kl 11/08 01:16 Follow up: Response: No adverse reaction ll3 11/07 22:54 Drug: NS 0.9% IV 500 ml Route: IV; Rate: bolus; Site: left antecubital; Disposition Summary: 11/08/22 00:58 Discharge Ordered Location: Home kdr Problem: new kdr Symptoms: have improved kdr Condition: Stable kdr Diagnosis - Epididymo-orchitis kdr Followup: kdr - With: Private Physician - When: 2 - 3 days - Reason: If symptoms return, Further diagnostic work-up, Recheck today's complaints, Continuance of care, Re-evaluation by your physician Followup: kdr - With: Froilan Crane MD - When: 2 - 3 days - Reason: If symptoms return, Further diagnostic work-up, Recheck today's complaints, Continuance of care, Re-evaluation by your physician Discharge Instructions: - Discharge Summary Sheet kdr - Epididymitis kdr - Orchitis kdr - Testicular Self-Exam kdr Forms: - Medication Reconciliation Form kdr - Thank You Letter kdr - Antibiotic Education kdr - Prescription Opioid Use kdr - Work release form ll3 Prescriptions: - acetaminophen-codeine 300-30 mg Oral tablet - take 1 tablet by ORAL route every 4 to 6 hours As needed as needed for pain; 12 kdr tablet; Refills: 0, Product Selection Permitted - Bactrim DS 800-160 mg Oral Tablet - take 1 tablet by ORAL route every 12 hours for 10 days; 20 tablet; Refills: 0, kdr Product Selection Permitted Signatures: Dispatcher [employer] Dyan Pace RN RN kl Rittger, Kevin, MD MD kdr Calcote, Vanessa, RN RN vc1 Marissa Jackson RN ll3
[2022-11-08 02:53] VITALS: TEMP 98.9
[2022-11-08 02:56] VITALS: BP 107/65; O2SAT 98
--- NOTE | 2022-11-08 19:31 | RAD REPORT ---
EXAM DESCRIPTION: US - Scrotum Testicles - 11/07/2022 10:34 pm CLINICAL HISTORY: 37 years Male, Right testicular pain TECHNIQUE: Realtime heck and color duplex sonography of the testes was performed. COMPARISON: None. FINDINGS: RIGHT: TESTIS: 4.3 x 2.5 x 3.3 cm. Mild heterogenous echotexture, without focal lesion. COLOR DOPPLER: Hyperemia. EPIDIDYMIS: Normal in size and echotexture. No focal mass lesion. Hyperemia. HYDROCELE: None. VARICOCELE: None. LEFT: TESTIS: 4.2 x 2.7 x 2.9 cm. Normal in size and echotexture, without focal lesion. COLOR DOPPLER: Normal Doppler color flow with normal arterial phasicity and venous flow. EPIDIDYMIS: Normal in size and echotexture. No focal mass lesion. Normal color Doppler flow patte rn in the epididymis. HYDROCELE: None. VARICOCELE: None. IMPRESSION: 1. Right epididymo-orchitis. 2. No evidence for testicular torsion bilaterally. Electronically signed by: Jas Anaya MD 11/07/2022 11:20 PM CDT Due to temporary technical issues with the PACS/Fluency reporting system, reports are being signed by the in house radiologists without review as a courtesy to insure prompt reporting. The interpreting radiologist is fully responsible for the content of the report.
== END 2022-11-08 01:17 | disposition home or self-care (01) ==
LOC: ER 21:35
DX: N45.3 Epididymo-orchitis (principal); I10 Essential (primary) hypertension
CPT/HCPCS: 96365; 85025; 81001; 80048; 36415; 76870; 96375; 99284; 96366; J2405; J7040; J0696